=== PATIENT | male | born 1935 | race Caucasian/White ===

== ENCOUNTER 2016-07-27 10:29 | Emergency (ER) | payer OTHER ==
--- NOTE | 2016-07-27 12:19 | Diag Imaging Result Document ---
PROCEDURE NAME: HEAD/C-SPINE W/O CONTRAST - 07/27/2016 CT HEAD WITHOUT CONTRAST: A dose-reduction protocol was used. COMPARISON: Compared with 06/30/2014. FINDINGS: There are atrophic changes similar to the previous exam. There is no infarct identified, although acute infarcts may not be immediately visible. There is no evidence of intracranial hemorrhage, mass effect, or midline shift. There is no skull fracture. IMPRESSION: No visible acute intracranial process. No evidence of intracranial injury. CT CERVICAL SPINE WITHOUT CONTRAST: A dose-reduction protocol was used. Axial and reformatted sagittal and coronal images are obtained. COMPARISON: No comparison exam. FINDINGS: There are degenerative changes at the atlantoaxial articulation. There are calcifications at the transverse ligament. There is multilevel degenerative disk and degenerative facet disease. There is a focal central disk protrusion at C4-5. There are posterior osteophytes and ligamentum flavum calcifications at C4-5 which produce mild spinal stenosis. There is apparent mild spinal stenosis at C5-6. There is multilevel degenerative neural foraminal narrowing. The C2-3 facet appears to be fused. There is no fracture identified. There is no subluxation seen. There is no precervical soft tissue swelling identified. There are atherosclerotic calcifications noted at the bilateral carotid bulb regions. IMPRESSION: 1. Substantial multilevel degenerative disease. Associated mild spinal stenosis at C4-5 and C5-6. Focal central disk protrusion at C3-4. 2. No evidence of fracture or subluxation. [facility]
[2016-07-27] MEDS ORDERED: NORCO-5 PO ONE (13:57)
--- NOTE | 2016-07-27 13:58 | PROVIDER DOCUMENTATION ---
HPI-Musculoskeletal Pain/Inj - GENERAL Chief Complaint: Fall Stated Complaint: LOWER BACK PAIN Time Seen by Provider: 07/27/16 11:12 Source: patient, family - HX OF PRESENT ILLNESS-MUSKULOSKELTAL Nature of Presenting Problem: REPORTS FALLING OUT OF BED WHILE DREAMING ABOUT 3 NIGHTS AGO. C/O "I HIT MY HEAD AND MY LOWER BACK HURTS BUT I HAVE DEGENERATIVE DISC DISEASE." Quality of Pain: reports: aching Severity in ED: mild Onset/Duration: 3 days ago Timing: still present Modifying Factors: improves with: nothing Any recent injury?: Yes (FELL FROM BED 3 NIGHTS AGO) Locality of Occurance: Home Similar Symptoms Previously?: Yes (DJD) Recently seen or treated by another doctor?: No - FALL INJURY Location of Pain/Injury: reports: neck, back Pain Radiation: reports: no radiation Reason for Fall: reports: other ("I WAS DREAMING AND I JUST FELL OUT OF BED. ") Symptoms prior to fall:: reports: none Loss of Consciousness: no loss of consciousness - BACK & NECK PAIN/INJURY Back/Neck Pain Location: reports: C-spine, lumbar spine Associated Symptoms: reports: denies symptoms History of Chronic Neck or Back Pain?: Yes (DJD) - LOWER EXTREMITY PAIN/INJURY Context / Method of Injury: reports: fell - UPPER EXTREMITY PAIN/INJURY Associated Symptoms: reports: denies symptoms Review of Systems - Adult - REVIEW OF SYSTEMS - ADULT Constitutional: reports: no symptoms reported Eyes: reports: no symptoms reported Ears, Nose, Mouth & Throat: reports: no symptoms reported Cardiovascular: reports: no symptoms reported Respiratory: reports: no symptoms reported Gastrointestinal: reports: no symptoms reported Genitourinary: reports: no symptoms reported Musculoskeletal: reports: see HPI Integumentary: reports: no symptoms reported Neurological: reports: no symptoms reported Psychiatric: reports: no symptoms reported Endocrine: reports: no symptoms reported Allergic/Immunologic: reports: no symptoms reported All Other Systems: Reviewed and Negative Past History - Adult - PAST MEDICAL HISTORY-ADULT Review of Records: reports: Nursing Assessment Review, Medications Reviewed, Social history reviewed & non-contributory. Major Childhood Illnesses: reports: denies history Cardiovascular: reports: arrhythmia, HTN, heart valve problem (MVP), hyperlipidemia, palpitations Respiratory: reports: lung disease (left lower lobectomy) Gastrointestinal: reports: Crohn's, GERD Genitourinary: reports: prostate cancer, other (interstitial cystitis) Musculoskeletal: reports: other (DJD) Neurological: reports: denies history Psychiatric: reports: denies history Endocrine/Immune: reports: denies history Other Conditions: reports: denies history - PRIOR SURGERIES/PROCEDURES Surgical/Procedure History: reports: appendectomy, cholecystectomy, other ( prostate, LL lobectomy) - SOCIAL HISTORY Smoking: denies Substance Use: none/never Alcohol Use Frequency: never Living Situation: alone Physical Exam-Injury Related - Physical Exam-Injury Related General Appearance: appears well Immobilization?: negative: backboard, C-collar, applied in ED, applied KNOCKOUT MAN Eyes: PERRL/EOMI, pink conjunctivae Head, Ears, Nose, Mouth & Throat: normocephalic/atraumatic, moist mucous membranes Neck: tender lateral (BILATERALLY) Respiratory: chest non-tender, lungs clear, normal breath sounds Cardiovascular: normal peripheral pulses, regular rate, rhythm Abdominal Exam: normal bowel sounds Male Genitalia: deferred Lymphatic: no adenopathy Back Exam: other (LUMBAR SPINE TENDER LATERALLY BILATERALLY) Extremity: normal range of motion Integumentary: normal color, warm/dry Neurologic: grossly normal - Glascow Coma Score Best Eye Response (Bob White): (4) open spontaneously Best Verbal Response (Marina): (5) oriented Best Motor Response (Bob White): (6) obeys commands Progress - PLAN OF CARE/RESULTS Progress/Plan/Lab Results: Vital Signs Temp Pulse Resp BP Pulse Ox 07/27/16 10:47 97.3 F L 86 20 143/75 100 Penicillins Allergy (Intermediate, Verified 07/27/16 11:22) RASH amlodipine besylate * [From Norvasc] Adverse Reaction (Intermediate, Verified 11:22) palpitations butabarbital [From Pyridium Plus] Adverse Reaction (Verified 07/27/16 11:22) "stops urine flow" hyoscyamine [From Pyridium Plus] Adverse Reaction (Verified 07/27/16 11:22) "stops urine flow" phenazopyridine HCl * [From Pyridium Plus] Adverse Reaction (Verified 07/27/16 11:22) "stops urine flow" SIMVAstatin [Zocor] 10 mg PO QHS 07/10/12 Verapamil [Isoptin] 240 mg PO DAILY 07/10/12 Alprazolam 0.25 mg PO BID PRN PRN 01/28/14 Ascorbic Acid [Vitamin C] 500 mg PO DAILY 01/28/14 Calcium Magnesium Zinc 1 tab PO DAILY 01/28/14 Cholecalciferol (Vitamin D3) [Vitamin D3] 2,000 unit PO DAILY 01/28/14 Folic Acid 0.4 mg PO DAILY 01/28/14 Glipizide [Glipizide Xl] 2.5 mg PO DAILY 01/28/14 Gluc Shepherd/Chondro Shepherd A/Vit C/Mn [Glucosamine Chondroitin Tab] 1 each PO DAILY Stella-3 Fatty Acids/Fish Oil [Fish Oil 1,000 mg Softgel] 1 each PO DAILY Potassium Chloride [Klor-Con M20] 10 meq PO DIRECTED 01/28/14 Ubidecarenone [Co Q-10] 200 mg PO DAILY 01/28/14 Aspirin [Aspirin EC] 81 mg PO DAILY 06/30/14 Orders Category Date Time Status HEAD/C-SPINE W/O CONTRAST [CT] Stat Exams 07/27/16 11:03 Completed LUMBAR SPINE [RAD] Stat Exams 07/27/16 13:55 Ordered Hydrocodone/APAP 5 mg/325 mg [[place]-5] Med 07/27/16 13:57 Discontinued 1 each PO NOW ONE CT HEAD AND C-SPINE NO FRACTURE L-SPINE WNL - XRAY 2 XRAY: Bilateral XRAY Study: Lumbar Spine (WNL) Impression: Normal - CT/MRI 1 CT Study: Head CT Results: WNO Departure - Departure Time of Disposition Order: 15:15 DIAGNOSIS: Low back pain Qualifiers: Chronicity: acute Back pain laterality: bilateral Sciatica presence: without sciatica Qualified Code(s): M54.5 - Low back pain Head pain cephalgia Qualifiers: Headache type: post-traumatic Headache chronicity pattern: unspecified pattern Intractability: not intractable Qualified Code(s): G44.309 - Post-traumatic headache, unspecified, not intractable Fall Qualifiers: Encounter type: initial encounter Qualified Code(s): W19.XXXA - Unspecified fall, initial encounter Disposition: HOME 01 Certified Medical Emergency: Emergent Condition: Stable Additional Instructions: BE VERY CAREFUL TAKING HYDROCODONE IT IS A NARCOTIC. O.K. TO CONTINUE YOUR HOME MEDICATIONS AND ALEVE. USE ICE TO YOUR BACK. RETURN TO ER FOR ANY WORSENING SYMPTOMS. ED Follow Up Instructions: You have been treated by a care provider in the Emergency Department. These instructions are being provided to you so you can have an understanding of how to care for yourself upon discharge. Upon discharge from the Emergency Department, you are responsible for making arrangements for follow-up care by a physician of your choice. Take all prescribed medications as directed. Return to the Emergency Department immediately for any new or worsening symptoms. You may call the Physician Referral phone number at [phone] to obtain a list of Physicians who are taking new patients. Prescriptions: Hydrocodone/Acetaminophen [[place] 5-325 Tablet] 1 each PO Q6-8H PRN PRN #7 tablet PRN Reason: Pain Referrals: Brunilda Ferris MD [Primary Care Provider] - Instructions: Migraine Headache, [id number]
[2016-07-27 15:01] VITALS: BP 121/57
--- NOTE | 2016-07-27 15:03 | Diag Imaging Result Document ---
PROCEDURE NAME: LUMBAR SPINE - 07/27/2016 LUMBAR SPINE AP AND LATERAL WITH OBLIQUES, SIX VIEWS: FINDINGS: There is good alignment to the lumbar spine. No compressed vertebra. No subluxation. There is disk space narrowing with vacuum disks at L4-5 and L5-S1. Degenerative bone spurring is found throughout the lumbar spine. IMPRESSION: 1. Moderate degenerative changes. 2. No fracture.
== END 2016-07-27 15:35 | disposition home or self-care (01) ==
LOC: ED 10:29
DX: G44.309 Post-traumatic headache, unspecified, not intractable (principal); M54.5 Low back pain; R51 Headache; W06.XXXA Fall from bed, initial encounter; I10 Essential (primary) hypertension; I34.1 Nonrheumatic mitral (valve) prolapse; E78.5 Hyperlipidemia, unspecified; K50.90 Crohn's disease, unspecified, without complications; Z79.899 Other long term (current) drug therapy; Z85.46 Personal history of malignant neoplasm of prostate; N30.10 Interstitial cystitis (chronic) without hematuria; Z90.2 Acquired absence of lung [part of]; Z79.82 Long term (current) use of aspirin
CPT/HCPCS: 70450; 72110; 72125

== ENCOUNTER 2018-07-04 10:57 | Inpatient (IN) ==
[2018-07-04] MEDS ORDERED: ASPIRIN PO ONE ×2 (11:15→11:30)
[2018-07-04] MEDS ORDERED: NITROGLYCERIN SL ONE ×2 (11:16→11:30)
--- NOTE | 2018-07-04 11:51 | EKG Report ---
Test Performed on : 07/04/2018 11:02:08 AM Test Reason : CP Blood Pressure : / mmHG Vent. Rate : 098 BPM Atrial Rate : 098 BPM P-R Int : 120 ms QRS Dur : 086 ms QT Int : 354 ms P-R-T Axes : 000 -50 035 degrees QTc Int : 451 ms Normal sinus rhythm. Left anterior fascicular block Abnormal ECG When compared with ECG of 10-NOV-2017 22:04, Vent. rate has increased BY 41 BPM Unconfirmed Result
[2018-07-04 11:53] LABS: BASO# 0.01 X1000 (0.0-0.2); BASO% 0.2 % (0.0-0.8); EOS# 0.08 X1000 (0.0-0.7); EOS% 1.3 % (0.0-10.0); HEMATOCRIT 34.8 % (42.0-52.0); HEMOGLOBIN 11.6 g/dL (14.0-18.0); LYMPH# 0.98 X1000 (1.2-3.4); LYMPH% 15.8 % (20.5-51.1); MCH 30.5 PG (27-31); MCHC 33.3 g/dL (33-37); MCV 91.6 FL (81-99); MONO# 0.83 X1000 (0.11-0.59); MONO% 13.3 % (1.7-9.3); MPV 11.4 FL (7.4-10.4); NEUT# 4.32 X1000 (1.4-6.5); NEUT% 69.4 % (42.2-75.2); PLT 149 X1000 (130-400); RDW 12.9 % (11.5-14.5); WBC 6.22 X1000 (4.8-10.8)
--- NOTE | 2018-07-04 11:54 | Diag Imaging Result Doc PS360 ---
EXAM: CHEST-PORTABLE 07/04/2018 HISTORY: CP TECHNIQUE: AP upright chest portable at 1147 COMMENT: The inspiration is less optimal than on 06/30/2014. There may be some mild atelectasis at the left base. Otherwise the appearance of the chest has not changed significantly. IMPRESSION: Questionable left lower lobe atelectasis. Electronically signed by Tate Paulino 07/04/2018 11:52 AM
[2018-07-04] MEDS ORDERED: MORPHINE IV ONE (11:57)
[2018-07-04] MEDS ORDERED: ZOFRAN IV ONE (11:57)
[2018-07-04 12:11] LABS: CALCIUM 9.3 mg/dL (8.8-10.2); CREATININE 1.5 mg/dL (0.7-1.2); MAGNESIUM 1.6 mg/dL (1.5-2.7); POTASSIUM 4.1 mmol/L (3.5-5.1)
[2018-07-04 12:15] LABS: INR 1.03; PROTIME 14.3 Seconds (11.0-16.0); PTT 27.7 Seconds (22.3-41.8)
[2018-07-04 12:49] LABS: URINE SOURCE CLEAN CATCH
[2018-07-04 12:51] LABS: BILIRUBIN URINE NEGATIVE (NEGATIVE); BLOOD URINE NEGATIVE (NEGATIVE); COLOR YELLOW; GLUCOSE URINE NEGATIVE (NEGATIVE); KETONE URINE NEGATIVE (NEGATIVE); LEUKOCYTES URINE NEGATIVE (NEGATIVE); NITRITE URINE NEGATIVE (NEGATIVE); PROTEIN URINE TRACE mg/dL (NEGATIVE); SP GRAVITY URINE 1.012; TURBIDITY URINE CLEAR (CLEAR); UR EPITHELIAL CELLS <10 /HPF (<10); URINE BACTERIA NEGATIVE /HPF; URINE RBC <10 /HPF (<10); URINE WBC <10 /HPF (<10); UROBILINOGEN URINE NORMAL (NORMAL)
[2018-07-04] MEDS ORDERED: HEPARIN IV ONE (14:12)
[2018-07-04] MEDS ORDERED: HEPARIN 25,000 UNITS/D5W 25,000 UNIT/250 ML IV.SOLN IV SCH (14:15)
[2018-07-04] MEDS ORDERED: ZOFRAN IV PRN (14:15)
[2018-07-04 14:23] LABS: IRON SATURATION 13 %; TIBC 217 ug/dL; TOTAL IRON 28 ug/dL (53-167); UNBOUND IRON 189 ug/dL (112-346)
[2018-07-04 14:42] LABS: FERRITIN 154 ng/mL (30-400)
[2018-07-04 15:01] LABS: C REACTIVE PROT QUANT 5.63 mg/L (0.00-5.00)
--- NOTE | 2018-07-04 15:24 | Diag Imaging Result Doc PS360 ---
LUNG SCAN / VQ - 07/04/2018 INDICATION: chest pain and elevated ddimer TECHNIQUE: 39.6 mCi of DTPA was used for inhalation. 6.2 mCi of MAA was used for injection. COMPARISON: Chest x-ray from earlier today FINDINGS: There is normal localization pattern of the radiotracers. No evidence of pulmonary perfusion defect. IMPRESSION: Negative for pulmonary embolism. Electronically signed by Rashaun Rodriguez 07/04/2018 3:22 PM
[2018-07-04] MEDS: NS 1,000 ML IV SCH (16:54)
[2018-07-04] MEDS ORDERED: LOVENOX SUBQ ONE (17:07)
[2018-07-04] MEDS: HUMULIN R SUBQ SCH ×2 (17:11→21:50)
--- NOTE | 2018-07-04 18:13 | HISTORY AND PHYSICAL ---
PRIMARY CARE PROVIDER: No one, he goes to a clinic. CHIEF COMPLAINT: Chest pain. HISTORY OF PRESENT ILLNESS: Mr. Ruddy Briscoe is an 83-year-old male with no medical history of heart disease. He does have a medical history of diabetes, hypertension, and mitral valve prolapse. He states that around 8:00 p.m. last night he started having some mid sternal chest pain into the back and down the back of both arms. He took a 325 mg aspirin and went to bed. He was able to sleep. He woke up around 8:30 this morning and was still having some mid sternal chest pain that continued to radiate to the back and down both arms. He was significantly short of breath with this and had some dizziness. Vital signs were stable upon admission. His first set of cardiac enzymes were negative. EKG did not show any ST elevations but it did take nitroglycerin and morphine to relieve his pain. One of the labs that came back elevated was a D-dimer at 1.28 but he also has an elevated BUN and creatinine so he will be sent for a VQ scan of the lungs to rule out PE. We will admit to [facility] as he will be started on heparin drip. PAST MEDICAL HISTORY: 1. Diabetes mellitus type 2. 2. Hypertension. 3. Prostate cancer, status post prostatectomy. 4. Crohn's disease. 5. Mitral valve prolapse. 6. GERD. 7. Interstitial cystitis. SURGICAL HISTORY: 1. Appendectomy. 2. Cholecystectomy. 3. 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 4. Prostatectomy. SOCIAL HISTORY: Denies tobacco, alcohol, or illicit drug use. His lives with his older daughter due to advancing Alzheimer's, which I believe they live right next door to his house. FAMILY HISTORY: None. ALLERGIES: Hyoscyamine, Pyridium, penicillin, and Norvasc. HOME MEDICATIONS: 1. Zocor 10 mg p.o. nightly. 2. Vitamin C 500 mg p.o. daily. 3. Aspirin, enteric coated, 81 mg p.o. daily. 4. Calcium, magnesium, and zinc 1 tab p.o. daily. 5. Vitamin D3 2,000 units p.o. daily. 6. Nexium 40 mg p.o. daily. 7. Folic acid 0.4 mg p.o. daily. 8. Glucosamine chondroitin 1 tab p.o. daily. 9. Fish oil once daily. 10.Potassium chloride 10 mEq as directed. 11.CoQ10 400 mg p.o. daily. 12.Verapamil 240 mg p.o. daily. REVIEW OF SYSTEMS: A 14 point review of systems was completed and negative except for those mentioned above in the HPI. To add to that, he states that he has not really been eating well but no nausea and the dizziness that he has is pretty common for him. PHYSICAL EXAMINATION: VITAL SIGNS: Temperature is 97.6, heart rate 100, respiratory rate 20, blood pressure 152/72, O2 saturation 100% on room air, 6 foot zero inches tall and 160 pounds. BMI is 21.7. GENERAL: Mr. Ruddy Briscoe is an 83-year-old male. He is in no acute distress. He is able to answer questions appropriately. HEENT: Atraumatic, normocephalic. Pupils are equal, round, and reactive to light. Extraocular movements are intact. Mucous membranes are dry. NECK: Trachea is midline. CARDIOVASCULAR: S1 and S2. Regular rate and rhythm. No rubs, gallops, or murmurs. No lower extremity edema; +2 dorsalis and radial pulses. Negative JVD or carotid bruits. PULMONARY: Clear to auscultate bilateral breath sounds. No accessory muscle use or work of breathing noted. GI: Soft, nontender, and nondistended. Positive bowel sounds times 4. EXTREMITIES: Moves all extremities equally with full range of motion. NEURO: Alert and oriented times 3. Follows commands. Sensory is intact. SKIN: Warm, dry, and intact. LABORATORY DATA: White blood cells 6,000, hemoglobin 11, hematocrit 34, and platelet count 149. INR is 1.03. PTT is 27.7. D-dimer is 1.28. Sodium is 140, potassium 4.1, BUN 27, creatinine 1.5, glucose 13, calcium 9.3, and magnesium 1.6. CK is 130. Troponin less than 0.01. Urinalysis: Trace protein. IMAGING: Chest x-ray: Questionable left lower lobe atelectasis. EKG: Normal sinus rhythm, rate 98. QTc 451. There are no ST elevations or ST depressions and no Q waves. ASSESSMENT AND PLAN: 1. Chest pain that radiated down both arms and into the back with associated shortness of breath and dizziness, relieved after receiving morphine and nitroglycerin. First set of cardiac enzymes are negative. EKG without any ST changes. D-dimer is elevated. We will send for a VQ scan to rule out pulmonary embolus. He does have an elevated creatinine. We will repeat EKG in the morning and check an echocardiogram. The patient was started on a heparin drip in the Emergency Room without official pulmonary embolus diagnosis. We will transfer to the [facility]. We will also get a type and screen. 2. Diabetes mellitus type 2. We will do pattern blood glucoses and sliding scale insulin. 3. Hypertension. Continue home medications and verapamil. 4. Mitral valve prolapse. Continue verapamil. 5. Iron deficiency anemia. We will check levels. 6. Deep vein thrombosis prophylaxis. He is on a heparin drip. Dictated by JADYN Lu for Pavel Gutierrez MD cc: JADYN Lu MD Patient seen and evaluated by me. Presenting with chest pain. Had a VQ scan which is not indicative of PE. Cardiology consulted. Dr. Gutierrez. [facility]
[2018-07-04] MEDS: TYLENOL PO PRN (18:29)
--- NOTE | 2018-07-04 18:36 | CARDIOLOGY CONSULTATION ---
DATE: 07/04/2018 CHIEF COMPLAINT ON PRESENTATION: Chest pain. HISTORY OF PRESENT ILLNESS: Mr. Briscoe is an 83-year-old white male with a history of diabetes, hypertension, and hyperlipidemia, who presented for complaints of chest pain that began last night. It felt like a pressure. It began while he was in a resting position. There was no exertional component, located in the mid chest, and he had no other symptoms associated. These pains have persisted for greater than 12 hours and actually were present upon waking this morning. He has had nuclear scans performed that did not suggest any obvious ischemia and was a relatively low risk study. The patient is a somewhat difficult historian during the course of this study. PAST MEDICAL HISTORY: Significant for: 1. Chest pain, evaluated with nuclear scans that was a low risk study in 2012. 2. Diastolic heart failure. 3. Hypertension. 4. Hyperlipidemia. 5. Diabetes. 6. Hypothyroidism. 7. Chronic kidney disease. 8. Crohn disease. 9. Prostate cancer. SOCIAL HISTORY: Apparently lives alone in [place]. He has family who live next door. He does not smoke. FAMILY HISTORY: Significant for hypertension. REVIEW OF SYSTEMS: A 10 system review of systems is negative, except for those as mentioned in the HPI. PHYSICAL EXAMINATION: Vital signs: The patient had a temperature of 100.2 degrees. His heart rate is anywhere from the 80s to low 100s. Blood pressure 152/72. General: He is in no acute distress. HEENT: Oropharynx is moist. Poor dentition. Eye examination shows pink conjunctivae and white sclerae. Neck: Examination shows no obvious thyromegaly or thyroid tenderness. Cardiovascular: He sounds to be in a regular rate and rhythm. He has no obvious murmurs. He has no S3. He has no lower extremity edema. Chest: Exam sounds clear bilaterally. He has no increased work of breathing. Abdomen: Soft, nontender, nondistended. No obvious organomegaly. Skin: Warm and dry throughout without any rashes. Neurological: He is moving all extremities well. He has no lateralizing deficits. PERTINENT DATA: The patient had a chest x-ray suggesting a left lower lobe atelectasis but really no change in the study compared to June 2014. A V/Q scan was negative. He had an EKG reviewed by me that demonstrated INCOMPLETE REPORT -- DICTATION ENDS HERE. cc: Manuel Hernandez MD
[2018-07-04] MEDS ORDERED: ZOCOR PO SCH (21:00)
[2018-07-04] MEDS ORDERED: NITROGLYCERIN SL PRN (21:29)
--- NOTE | 2018-07-04 22:01 | ECHO REPORT ---
ORDER DATE: 07/04/2018 MEASUREMENTS: Left ventricular end-diastolic diameter 4.4, end-systolic diameter 2.3, septal thickness 1.0. Posterior wall thickness 1.0, aortic root 3.8, left atrium 4.3. SUMMARY: 1. Technically difficult study due to limited acoustic window quality. 2. Aortic valve is trileaflet and opens adequately on 2-dimensional images. Peak gradient across the aortic valve is less than 10 mmHg. 3. Mitral valve is without evidence of structural abnormality. Specifically, there is no evidence of mitral valve prolapse. 4. Tricuspid valve is without evidence of structural abnormality, while pulmonic valve is not well demonstrated. There is mild tricuspid regurgitation. The estimated systolic PA pressure by Doppler is 30 mmHg. 5. The aortic root is borderline enlarged. The proximal ascending aorta is mildly to moderately enlarged. 6. Normal left ventricular dimensions demonstrated. Estimated left ventricular ejection fraction appears to be at least 60%. No regional wall motion abnormalities evident. Doppler suggests grade 1 left ventricular diastolic function. 7. The left atrium is mildly enlarged. 8. The right atrium and right ventricle are normal size with grossly preserved right ventricular systolic function. 9. No pericardial effusion. 10. Appearance of inferior vena cava suggests normal central venous pressure. cc: MD Sofy Renee CRNP
[2018-07-04] MEDS: PRILOSEC PO SCH (22:34)
[2018-07-04] MEDS: MORPHINE IV PRN (23:12)
[2018-07-05 05:44] LABS: BASO# 0.02 X1000 (0.0-0.2); BASO% 0.3 % (0.0-0.8); EOS# 0.03 X1000 (0.0-0.7); EOS% 0.4 % (0.0-10.0); HEMATOCRIT 32.3 % (42.0-52.0); HEMOGLOBIN 10.9 g/dL (14.0-18.0); LYMPH# 0.79 X1000 (1.2-3.4); LYMPH% 10.2 % (20.5-51.1); MCH 31.1 PG (27-31); MCHC 33.7 g/dL (33-37); MONO# 1.34 X1000 (0.11-0.59); MONO% 17.3 % (1.7-9.3); MPV 11.5 FL (7.4-10.4); NEUT# 5.55 X1000 (1.4-6.5); NEUT% 71.8 % (42.2-75.2); PLT 124 X1000 (130-400); RBC 3.51 XMIL (4.7-6.1); RDW 12.6 % (11.5-14.5); WBC 7.73 X1000 (4.8-10.8)
[2018-07-05 06:11] LABS: HEMOGLOBIN A1C 5.2 % (4.8-6.0)
[2018-07-05 06:13] LABS: MAGNESIUM 1.5 mg/dL (1.5-2.7)
[2018-07-05] MEDS: HUMULIN R SUBQ SCH ×3 (06:34→18:04)
--- NOTE | 2018-07-05 06:46 | EKG Report ---
Test Performed on : 07/04/2018 9:16:04 PM Test Reason : chest pain Blood Pressure : / mmHG Vent. Rate : 082 BPM Atrial Rate : 082 BPM P-R Int : 144 ms QRS Dur : 100 ms QT Int : 392 ms P-R-T Axes : 057 -51 009 degrees QTc Int : 457 ms Normal sinus rhythm. Left axis deviation Septal infarct , age undetermined Abnormal ECG When compared with ECG of 04-JUL-2018 11:02, (Unconfirmed) No significant change was found Confirmed by Bree SANFORD, Gunner Lockett ([id number]) on 07/05/2018 7:57:43 AM
--- NOTE | 2018-07-05 07:25 | EKG Report ---
Test Performed on : 07/05/2018 06:43:04 AM Test Reason : chest pain Blood Pressure : / mmHG Vent. Rate : 081 BPM Atrial Rate : 081 BPM P-R Int : 152 ms QRS Dur : 094 ms QT Int : 356 ms P-R-T Axes : 051 -46 014 degrees QTc Int : 413 ms Normal sinus rhythm. Left anterior fascicular block Septal infarct (cited on or before 04-JUL-2018) Abnormal ECG When compared with ECG of 04-JUL-2018 21:16, (Unconfirmed) No significant change was found Unconfirmed Result
[2018-07-05] MEDS: MORPHINE IV PRN (07:48)
[2018-07-05] MEDS: PRILOSEC PO SCH (08:56)
[2018-07-05] MEDS ORDERED: GLUCOSAMINE 500 MG/CHONDROITIN 400 MG PO SCH (09:00)
[2018-07-05] MEDS ORDERED: VITAMIN C PO SCH (09:00)
[2018-07-05] MEDS ORDERED: COENZYME Q10 PO SCH (09:00)
[2018-07-05] MEDS ORDERED: ISOPTIN SR PO SCH (09:00)
[2018-07-05] MEDS ORDERED: VITAMIN D PO SCH (09:00)
[2018-07-05] MEDS ORDERED: FOLIC ACID PO SCH (09:00)
[2018-07-05] MEDS ORDERED: THERA M PLUS PO SCH (09:00)
[2018-07-05] MEDS ORDERED: ASPIRIN EC PO SCH (09:00)
[2018-07-05] MEDS ORDERED: FISH OIL CONCENTRATE PO SCH (09:00)
[2018-07-05] MEDS: TYLENOL PO PRN ×2 (10:39→16:49)
[2018-07-05] MEDS: NS 1,000 ML IV SCH (10:40)
--- NOTE | 2018-07-05 12:07 | PROGRESS NOTE ---
DATE: 07/05/2018 SUBJECTIVE: The patient is resting comfortable in bed. OBJECTIVE: Vital signs: Temperature 98.8 degrees, pulse 81, respiratory rate 18, blood pressure 126/62, and oxygen saturation is 96%. HEENT: Head is atraumatic, normocephalic. Cardiovascular: S1, S2. Respiratory System: Has evidence of good air entry bilaterally. Abdomen: Soft, nontender. No masses felt. Extremities: No evidence of edema. Central nervous system: No obvious focal deficit noted. LABORATORY: WBC is 7.73, hematocrit 32.3, with a platelet count of 124,000. ASSESSMENT AND PLAN: 1. Atypical chest pain. The patient had been followed by the cardiology team. Further cardiac workup will be per recommendation of the Cardiology Team. 2. Crohn's disease. We will get GI to see patient while in the hospital. 3. Diabetes mellitus type 2. Continue blood sugar monitoring as well as sliding scale insulin. 4. Hypertension. Continue current antihypertensive regimen. 5. History of mitral valve prolapse. Aware. 6. Iron deficiency anemia. Continue iron supplementation. Of note, the patient also has a low B12 level. We will also need to be on B12 supplementation as well. 7. Deep vein thrombosis prophylaxis. We will maintain patient on Lovenox 40 subcutaneous once a day. cc: Pavel Gutierrez MD
--- NOTE | 2018-07-05 12:39 | PROVIDER DOCUMENTATION ---
This chart was entered by Donna Bennett Scribe, acting as scribe for Clement Carpio MD. HPI-Chest Pain - General Chief Complaint: Chest Pain Stated Complaint: CP Time Seen by Provider: 07/04/18 11:27 Source: patient Allergies/Adverse Reactions: Patient Allergies Allergy/AdvReac Type Severity Reaction Status Date / Time Penicillins Allergy Intermediate RASH Verified 07/04/18 11:51 amlodipine besylate * AdvReac Intermediate palpitation Verified 07/04/18 11:51 [From Norvasc] s butabarbital AdvReac "stops Verified 07/04/18 11:51 [From Pyridium Plus] urine flow" hyoscyamine AdvReac "stops Verified 07/04/18 11:51 [From Pyridium Plus] urine flow" phenazopyridine HCl * AdvReac "stops Verified 07/04/18 11:51 [From Pyridium Plus] urine flow" Home Medications: Home Medication List Medication Instructions Recorded Confirmed Last Taken Type SIMVAstatin [Zocor] 10 mg PO QHS 07/10/12 07/04/18 07/03/18 History Verapamil [Isoptin] 240 mg PO DAILY 07/10/12 07/04/18 07/27/16 08:00 History Ascorbic Acid [Vitamin C] 500 mg PO DAILY 01/28/14 07/04/18 07/27/16 08:00 History Calcium Magnesium Zinc 1 tab PO DAILY 01/28/14 07/04/18 07/27/16 08:00 History Cholecalciferol (Vitamin D3) 2,000 unit PO DAILY 01/28/14 07/04/18 07/27/16 08: 00 History [Vitamin D3] Folic Acid 0.4 mg PO DAILY 01/28/14 07/04/18 07/27/16 08:00 History Gluc Shepherd/Chondro Shepherd A/Vit C/Mn 1 each PO DAILY 01/28/14 07/04/18 07/27/16 08:00 History [Glucosamine Chondroitin Tab] [place]-3 Fatty Acids/Fish Oil [Fish 1 each PO DAILY 01/28/14 07/04/18 07/27/16 08 :00 History Oil 1,000 mg Softgel] Potassium Chloride [Klor-Con M20] 10 meq PO DIRECTED 01/28/14 07/04/18 08:00 History Ubidecarenone [Co Q-10] 400 mg PO DAILY 01/28/14 07/04/18 07/27/16 08:00 History Aspirin [Aspirin EC] 81 mg PO DAILY 06/30/14 07/04/18 07/27/16 08:00 History Esomeprazole [Nexium] 40 mg PO DAILY 07/04/18 07/04/18 Unknown History Metronidazole 07/04/18 07/04/18 Unknown History - History of Present Illness-CP Nature of Presenting Problem: 83 yowm presents to the ed with c/o chest pain onset last night and still present today. pt sts it is getting worse Location: reports: substernal Chest Pain Radiation: reports: no radiation Quality of Pain: reports: aching, pressure Severity in ED: moderate Onset/Duration: last night Timing: still present Context/Activities at Onset: reports: light activity Modifying Factors: improves with: nothing Associated Symptoms: reports: shortness of breath. denies: abdominal pain, back pain, dizziness, fatigue, nausea, vomiting Nitro Today/Relief: 0.4 mg x 1, provided by ED, mild relief Aspirin Treatment Today: 325 mg x 1, provided by ED Similar Symptoms Previously?: Yes Recently Seen Here or By Another Healthcare Provider: No Review of Systems - Adult - REVIEW OF SYSTEMS - ADULT Constitutional: denies: chills, fever Eyes: reports: no symptoms reported Ears, Nose, Mouth & Throat: reports: no symptoms reported Cardiovascular: reports: see HPI, chest pain. denies: palpitations, syncope Respiratory: reports: shortness of breath. denies: cough, wheezing Gastrointestinal: denies: abdominal pain, diarrhea, nausea, vomiting Genitourinary: reports: no symptoms reported Musculoskeletal: denies: back pain, neck pain Integumentary: reports: no symptoms reported Neurological: denies: dizziness/vertigo, headache/migraines Psychiatric: reports: no symptoms reported Endocrine: reports: no symptoms reported Hematologic/Lymphatic: reports: no symptoms reported Allergic/Immunologic: reports: no symptoms reported All Other Systems: Reviewed and Negative Past History - Adult - PAST MEDICAL HISTORY-ADULT Review of Records: reports: Old Records Reviewed, Nursing Assessment Review, Medications Reviewed, Social history reviewed & non-contributory. Major Childhood Illnesses: reports: denies history Cardiovascular: reports: arrhythmia, HTN, heart valve problem (MVP), hyperlipidemia, palpitations Respiratory: reports: lung disease (left lower lobectomy) Gastrointestinal: reports: Crohn's, GERD Genitourinary: reports: prostate cancer, other (interstitial cystitis) Musculoskeletal: reports: other (DJD) Neurological: reports: denies history Psychiatric: reports: denies history Endocrine/Immune: reports: denies history Other Conditions: reports: denies history - PRIOR SURGERIES/PROCEDURES Surgical/Procedure History: reports: appendectomy, cholecystectomy, other ( prostate, LL lobectomy) - IMMUNIZATION STATUS Childhood Immunizations: See Nurse Assessment Flu Vaccine: See Nurse Assessment - FAMILY HISTORY Family History: reviewed, not pertinent - SOCIAL HISTORY Smoking: denies Substance Use: denies Living Situation: family Physical Exam-General - PHYSICAL EXAM-ADULT Initial Vital Signs Reviewed: Yes - CONSTITUTIONAL General Appearance: appears well, alert, mild distress, thin - EYES Eyes: PERRL/EOMI, pink conjunctivae - HEAD, EARS, NOSE, MOUTH & THROAT HENMT: moist mucous membranes, normal ENT inspection - NECK Neck: non-tender, full range of motion, supple, normal inspection - RESPIRATORY Respiratory: chest non-tender, lungs clear, normal breath sounds - CARDIOVASCULAR Cardiovascular: normal peripheral pulses, regular rate, rhythm - GASTROINTESTINAL (ABDOMEN) Abdominal Exam: normal bowel sounds, non tender, soft - LYMPHATIC Lymphatic: no adenopathy - MUSCULOSKELETAL Back Exam: normal inspection, no CVA tenderness, no vertebral tenderness Extremity: normal range of motion, non-tender, normal gait, normal inspection - SKIN Integumentary: normal color, normal turgor, warm/dry - NEUROLOGIC Neurologic: grossly normal, no motor/sensory deficits - PSYCHIATRIC Psych/Mental Status: normal mood/affect, normal thought content, normal thought process, oriented x 3 - HEART Score HEART Score: History: Highly Suspicious HEART Score: ECG: Non-Specific Repolarization Disturbance/LBBB/PM HEART Score: Age: > or = 65 Years HEART Score: Risk Factors for Atherosclerotic Disease: 1 or 2 Risk Factors HEART Score: Troponin: < or = Normal Limit Total HEART Score:: 6 Progress - PLAN OF CARE/RESULTS Progress/Plan/Lab Results: Vital Signs - 8 hr 07/04/18 11:07 07/04/18 11:30 07/04/18 11:45 Temperature 97.6 F Pulse Rate 97 H 94 H 93 H Respiratory Rate 18 18 18 Blood Pressure 169/79 164/80 150/85 O2 Sat by Pulse Oximetry 100 98 98 07/04/18 12:15 07/04/18 13:00 07/04/18 13:15 Temperature Pulse Rate 88 91 H 100 H Respiratory Rate 20 Blood Pressure 155/71 153/73 152/72 O2 Sat by Pulse Oximetry 98 100 Laboratory Results - last 24 hr 07/04/18 07/04/18 07/04/18 11:35 11:35 11:35 WBC RBC Hgb Hct MCV MCH MCHC RDW Std Deviation Plt Count MPV Immature Gran % (Auto) Neut % (Auto) Lymph % (Auto) [place] % (Auto) Eos % (Auto) Baso % (Auto) Immature Gran # (Auto) Neut # (Auto) Lymph # (Auto) [place] # (Auto) Eos # (Auto) Baso # (Auto) PT INR PTT (Actin FS) D-Dimer, Quantitative 1.28 H Sodium 140 Potassium 4.1 Chloride 108 H Carbon Dioxide 22 L Anion Gap 10 BUN 27 H Creatinine 1.5 H Estimated GFR/1.73 m2 44 BUN/Creatinine Ratio 18 Glucose 132 H Calculated Osmolality 286 Calcium 9.3 Magnesium 1.6 Creatine Kinase 130 Troponin T < 0.010 Urine Source Urine Color Urine Turbidity Urine pH Ur Specific [place] Urine Protein Ur Glucose (Stick) Ur Ketones (Stick) Urine Blood Urine Nitrite Urine Bilirubin Urobilinogen Dipstick Urine Leukocytes Urine WBC (Auto) Urine RBC (Auto) U Epithel Cells (Auto) Urine Bacteria (Auto) 07/04/18 07/04/18 07/04/18 11:35 11:35 12:38 WBC 6.22 RBC 3.80 L Hgb 11.6 L Hct 34.8 L MCV 91.6 MCH 30.5 MCHC 33.3 RDW Std Deviation 12.9 Plt Count 149 MPV 11.4 H Immature Gran % (Auto) 0.0 Neut % (Auto) 69.4 Lymph % (Auto) 15.8 L [place] % (Auto) 13.3 H Eos % (Auto) 1.3 Baso % (Auto) 0.2 Immature Gran # (Auto) 0.00 Neut # (Auto) 4.32 Lymph # (Auto) 0.98 L [place] # (Auto) 0.83 H Eos # (Auto) 0.08 Baso # (Auto) 0.01 PT 14.3 INR 1.03 PTT (Actin FS) 27.7 D-Dimer, Quantitative Sodium Potassium Chloride Carbon Dioxide Anion Gap BUN Creatinine Estimated GFR/1.73 m2 BUN/Creatinine Ratio Glucose Calculated Osmolality Calcium Magnesium Creatine Kinase Troponin T Urine Source CLEAN CATCH Urine Color YELLOW Urine Turbidity CLEAR Urine pH 5.0 Ur Specific [place] 1.012 Urine Protein TRACE A Ur Glucose (Stick) NEGATIVE Ur Ketones (Stick) NEGATIVE Urine Blood NEGATIVE Urine Nitrite NEGATIVE Urine Bilirubin NEGATIVE Urobilinogen Dipstick NORMAL Urine Leukocytes NEGATIVE Urine WBC (Auto) <10 Urine RBC (Auto) <10 U Epithel Cells (Auto) <10 Urine Bacteria (Auto) NEGATIVE Orders Category Date Time Status Cardiac Monitoring DIRECTED Care 07/04/18 11:27 Active Saline Loc NOW Care 07/04/18 11:28 Active CHEST-PORTABLE [RAD] Stat Exams 07/04/18 11:30 Completed LUNG SCAN / VQ [NM] Stat Exams 07/04/18 13:14 Ordered BMP [BASIC METABOLIC PANEL] [CHEM] Stat Lab 07/04/18 11:35 Completed CBC WITH ELECTRONIC DIFF [HEME] Stat Lab 07/04/18 11:35 Completed CK PROFILE [SP CHEM] Stat Lab 07/04/18 11:35 Completed CK PROFILE [SP CHEM] Stat Lab 07/04/18 13:56 Received CRP [C REACTIVE PROT QUANT] [CHEM] Stat Lab 07/04/18 13:56 Received D-DIMER [COAG] Stat Lab 07/04/18 11:35 Completed FERRITIN Stat Lab 07/04/18 11:35 Received FOLATE Stat Lab 07/04/18 11:35 Received INFLUENZA SCREEN A/B Stat Lab 07/04/18 13:56 Received MAGNESIUM [CHEM] Stat Lab 07/04/18 11:35 Completed PRO B-NATRIURETIC PEPTIDE Stat Lab 07/04/18 13:56 Received PROTIME WITH INR [COAG] Stat Lab 07/04/18 11:35 Completed PTT [COAG] Stat Lab 07/04/18 11:35 Completed TROPONIN T Stat Lab 07/04/18 11:35 Completed TROPONIN T Stat Lab 07/04/18 13:56 Received UIBC W TOTAL IRON [CHEM] Stat Lab 07/04/18 11:35 Received URINALYSIS W/POSS RFLX CULT [URINALYSIS] Stat Lab 07/04/18 12:38 Completed VITAMIN B12 Stat Lab 07/04/18 11:35 Received Ascorbic Acid [Vitamin C] Med 07/05/18 09:00 Ordered 500 mg PO DAILY Aspirin Med 07/04/18 11:15 Discontinued 325 mg PO NOW ONE Aspirin Med 07/04/18 11:30 Discontinued 325 mg PO NOW ONE Aspirin EC Med 07/05/18 09:00 Ordered 81 mg PO DAILY Calcium Magnesium Zinc Med 07/05/18 09:00 Ordered 1 tab PO DAILY Cholecalciferol (Vitamin D3) [Vitamin D3] Med 07/05/18 09:00 Ordered 2,000 unit PO DAILY Folic Acid Med 07/05/18 09:00 Ordered 0.4 mg PO DAILY Gluc Shepherd/Chondro Shepherd A/Vit C/Mn [Glucosamine Chondroitin Med 07/05/18 09:00 Ordered Tab] 1 each PO DAILY Morphine Med 07/04/18 11:57 Discontinued 4 mg IV NOW ONE Nitroglycerin Sl [Nitroglycerin] Med 07/04/18 11:16 Discontinued 0.4 mg SL NOW ONE Nitroglycerin Sl [Nitroglycerin] Med 07/04/18 11:30 Discontinued 0.4 mg SL NOW ONE [place]-3 Fatty Acids/Fish Oil [Fish Oil 1,000 mg Softgel Med 07/05/18 09:00 Ordered ] 1 each PO DAILY Ondansetron [Zofran] Med 07/04/18 11:57 Discontinued 4 mg IV NOW ONE SIMVAstatin [Zocor] Med 07/04/18 21:00 Ordered 10 mg PO QHS Ubidecarenone [Co Q-10] Med 07/05/18 09:00 Ordered 400 mg PO DAILY Verapamil [Isoptin] Med 07/05/18 09:00 Ordered 240 mg PO DAILY EKG [EKG] Stat Ther 07/04/18 11:28 Draft Result Diagrams: 07/04/18 11:35 07/04/18 11:35 - REASSESSMENT Reassessment #1 Time Reassessed: 13:12 Status: improving Reassessment Comment: pt is resting in bed - EKG 1 Time of EKG reading by physician:: 11:02 EKG Read and Signed by:: Clement Carpio EKG Interpretation (*Must complete 3 of following elements*): Abnormal Rate: 98 Rhythm: nsr [place]: normal QRS: other (LAFB) ND Interval: normal ST Wave: normal - XRAY 1 XRAY: Bilateral XRAY Study: Chest Impression: See EMR Report (EXAM: CHEST-PORTABLE 07/04/2018 HISTORY: CP TECHNIQUE: AP upright chest portable at 1147 COMMENT: The inspiration is less optimal than on 06/30/2014. There may be some mild atelectasis at the left base. Otherwise the appearance of the chest has not changed significantly. IMPRESSION: Questionable left lower lobe atelectasis. Electronically signed by Tate Paulino 07/04/2018 11:52 AM 07/04/18 1152 Interpreting Physician: Tate Paulino MD Dictated Date/Time: 07/04/18 1151 cc: Clement Carpio MD; None,PCP) - CONSULTS/PCP/HOSPITALIST Notification #1 *Consult/PCP/Hospitalist*: hospitalist dr fletcher Time Discussed: 13:12 Consult Disposition: Admit Departure - Departure Date of Disposition Decision: 07/04/18 Time of Disposition Decision: 13:15 DIAGNOSIS: D-dimer, elevated, Renal insufficiency Chest pain Qualifiers: Chest pain type: unspecified Qualified Code(s): R07.9 - Chest pain, unspecified Disposition: ADMITTED INPATIENT 09 Certified Medical Emergency: Emergent Condition: Stable Referrals and Follow-Ups: None,PCP [Primary Care Provider] - - Critical Care Note This patient required my direct & personal management of CC.: Yes Total Time (mins): 37 Critical Care Statement: This patient required my direct personal management to treat or rule out processes, the absence of which, could potentiallly result in sudden, clinically significant life or limb threatening deterioration. Attestation - Physician/ [place] Attestation Patient care was provided by Advanced Practice Provider:: No The physician spent face to face time with patient:: Yes Advanced Practice Provider documentation review:: Supervising physician onsite and consulted in the evaluation and care of this patient. The physician did have a face to face encounter with the patient. This chart was documented by the indicated scribe, (Donna Bennett Scribe) and accurately reflects the services I performed and decisions made by me, Clement Carpio MD, as attested by the provider's signature.
[2018-07-05] MEDS ORDERED: ICAR-C PO SCH (13:00)
[2018-07-05] MEDS ORDERED: VITAMIN B-12 PO SCH (13:00)
[2018-07-05 16:44] VITALS: BP 116/50
--- NOTE | 2018-07-05 19:58 | CARDIOLOGY PROGRESS NOTE ---
DATE: 07/05/2018 SUBJECTIVE: Mr. Briscoe is having discomfort presently, which seems to be more pleuritic in nature. He is having no exertional chest pain. PHYSICAL EXAMINATION: Vital Signs: He is afebrile. Heart rate of 77. He had T-max of 100.2 in the last 24 hours. His blood pressure is 108/57. General: He is in no acute distress. Cardiovascular: He sounds to be in a regular rate and rhythm. He has no obvious murmurs. He has no S3. He has no lower extremity edema. Chest: Clear bilaterally. He has no increased work of breathing. Abdomen: Soft, nontender. LABORATORY DATA: Pertinent data. His VQ scan was negative for any pulmonary emboli. His echocardiogram showed a normal ejection fraction of 60% with no obvious regional wall motion abnormalities. No clear evidence of significant valvular abnormalities. His lab data shows a white count of 7.7, hematocrit 32, platelet count is 124. His laboratories yesterday did not show any evidence of elevated troponin. His electrocardiograms during this hospitalization have been in sinus rhythm with no obvious ischemic changes nor evidence of any sort of injury pattern. All of these were reviewed by me. ASSESSMENT: Mr. Briscoe is an 83-year-old gentleman who presented with somewhat atypical chest pain. PLAN: At this point, he has a negative VQ scan. His chest pain is somewhat atypical. His echocardiogram is unremarkable. His electrocardiograms have been unremarkable as well. His laboratories have shown no evidence of elevations in his troponins. From my standpoint, he could be discharged with an outpatient stress done next week. He is not getting a stress today because he had a VQ scan yesterday and the VQ scan radiotracer would not allow an adequate study. I will relay this to the primary team. cc: Manuel Hernandez MD
--- NOTE | 2018-07-05 21:50 | GASTROENTEROLOGY CONSULTATION ---
DATE: 07/05/2018 REASON FOR CONSULTATION: Crohn disease. HPI: Mr. Ruddy Briscoe is a 83-year-old man with a past medical history of diabetes, hypertension, mitral valve prolapse, prostate cancer status post prostatectomy, GERD and Crohn disease who presented on 07/04 with substernal chest pain. He was ruled out for acute coronary syndrome and PE with a V/Q scan. The patient was seen by Cardiology and workup is in progress. GI was consulted because of some abdominal discomfort and diarrhea. The patient reports having no bowel movement for several days and being given a laxative today which caused him to have 1 loose stool today. He also reports taking a stool softener at home which causes him to have loose stools. He is overall a poor historian and has a difficult time of giving a history. He says that his last colonoscopy was 2 years ago and a couple weeks ago he had an upper GI series with Dr. Connors. The only other complaint that he has at this time is weight loss. He says he has been losing 2 pounds per day for several months and says that he has been down 65 pounds in the last 6 months. He denies any nausea, vomiting, dysphagia, rectal bleeding, hematemesis. He does report some shortness of breath and dizziness. REVIEW OF SYSTEMS: As per HPI are otherwise 12 point review of systems negative. PAST MEDICAL HISTORY: Diabetes type 2, hypertension, prostate cancer status post prostatectomy, Crohn disease, mitral valve prolapse, GERD, interstitial cystitis. 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 SOCIAL HISTORY: No smoking, alcohol or drug use. He lives with his and older daughter due to advancing Alzheimer's. FAMILY HISTORY: No significant GI history. ALLERGIES: Hyoscyamine, Pyridium, penicillin, Norvasc. HOME MEDICATIONS: Zocor, vitamin C, aspirin, calcium, magnesium, zinc, vitamin D, Nexium, folic acid, glucosamine, fish oil, potassium chloride, Co-Q10, verapamil. PHYSICAL EXAM: Temperature 98.7 degrees, heart rate 77, respiratory rate 22, blood pressure 108/57, O2 saturation 96% on 2 L nasal cannula.General: Patient is awake, alert, oriented to self and place. No acute distress. HEENT: Sclerae anicteric. Moist mucous membranes. Neck: No JVD. No lymphadenopathy. Supple. Cardiac: Regular rate and rhythm. No murmurs, rubs, or gallops. Lungs: Clear to auscultation bilaterally. Abdomen: Soft, nontender, nondistended. Normoactive bowel sounds. No rebound or guarding. Extremities: No clubbing, cyanosis, or edema. Neurologic: Nonfocal. Moving all extremities symmetrically. Psych: Patient has some word- finding difficulty and difficulty recalling events concerning for mild cognitive decline. LABS: White count of 7.7, hemoglobin 10.9, platelets 124,000, INR 1.03. D-dimer 1.28, sodium 140, potassium 4.1, chloride 108, CO2 of 22, BUN 27, creatinine 1.5, glucose 132, iron 28, ferritin 154, CRP 5.6, folate 17.5, vitamin B12 158. UA is negative. IMAGING: Chest x-ray, questionable left lower lobe atelectasis. CT scan negative for pulmonary embolism. Echocardiogram Doppler was technically difficult. EF was 60%. Some grade 1 diastolic dysfunction. ASSESSMENT AND PLAN: Mr. Ruddy Briscoe is an 83-year-old gentleman who was admitted with chest pain consider atypical, he has been ruled out for acute coronary syndrome and pulmonary embolism with troponins and V/Q scan. Gastroenterology was consulted given reported history of Crohn disease as well as an episode of diarrhea today. The patient reports having some loose stools associated with taking stool softeners recently. He is a poor historian. His labs are notable for iron deficiency and B12 deficiency together. He is not currently having any overt GI bleeding. At this time I recommend that the patient follow up with Dr. Connors as an outpatient for further evaluation of his iron deficiency. I recommend that he be started on oral replacement therapy as well as B12 replacement. The patient has not been on any mesalamine from his standpoint in the past but has had multiple courses of prednisone for diarrhea. His last colonoscopy was reportedly 2 years ago. The patient from our standpoint is stable to be discharge with outpatient followup in the next 1 to 2 weeks. Please call with any questions or concerns. Thank you for this consult.
[2018-07-06] MEDS ORDERED: LOVENOX SUBQ SCH (09:00)
[2018-07-06] MEDS ORDERED: ISOPTIN SR PO SCH (09:00)
--- NOTE | 2018-07-06 15:15 | DISCHARGE SUMMARY ---
ADMISSION DATE: 07/04/2018 DISCHARGE DATE: 07/05/2018 PRINCIPAL DIAGNOSIS: Atypical chest pain. SECONDARY DIAGNOSES: 1. Type 2 diabetes mellitus. 2. Hypertension. 3. Mitral valve prolapse. 4. Iron deficiency anemia. 5. Vitamin B12 deficiency. 6. History of prostate cancer. DISCHARGE MEDICATIONS: Include the followin. Cyanocobalamin 800 mcg p.o. daily. 2. Folic Acid 0.4 mg p.o. daily. 3. Ascorbic Acid 500 mg p.o. once a day. 4. Cholecalciferol 2000 units p.o. daily. 5. Glucosamine chondroitin 1 tab daily. 6. Calcium magnesium zinc 1 tab daily. 7. Aspirin 81 mg daily. 8. Zocor 10 mg p.o. once a day. 9. Verapamil 240 mg p.o. daily. 10. [place] 3 fatty acid 1 daily. 11. Potassium chloride 10 mEq p.o. daily. 12. CoQ10 40 mg p.o. daily. 13. Nexium 40 mg p.o. daily. CONSULTATIONS DURING HOSPITALIZATION: 1. Dr. Manuel Hernandez of Cardiology. 2. Dr. Castro [facility]. SPECIAL PROCEDURES DONE DURING THIS HOSPITAL STAY: V/Q scan . HOSPITAL COURSE: Mr. Ruddy Briscoe is an 83-year-old male who was admitted to the hospital because of chest pain. D-dimer level was high, and we got a V/Q scan and it showed low probability for V/Q. Acute SC was ruled out with negative cardiac enzymes. Patient was seen by Cardiology team. Just because he got dye for his V/Q scan, they could not do a cardiac stress test on him. As such, the patient will be discharged and he will need to follow up with Cardiology at a future date to have his cardiac stress test done. DISCHARGE EXAMINATION: At this time during my evaluation today, his vital signs were as follows. Temperature 98.8 degrees, pulse 81, respirations 18, blood pressure 126/62, and oxygen saturation 96%. HEENT: Atraumatic, normocephalic. Cardiovascular: S1, S2. Respiratory: There is evidence of good air entry bilaterally. Abdomen: Soft, nontender. No masses felt. Extremities: No evidence of edema. Central nervous system: No focal deficits noted. PLAN: Discharge home today. Follow up with Cardiology in the outpatient. cc: Pavel Gutierrez MD
--- NOTE | 2018-07-08 20:58 | Diag Imaging Result Document ---
PROCEDURE NAME: MYOCARDIAL PERF SCAN, STR/REST - 07/05/2018 STUDY: Rest/stress Lexiscan myocardial perfusion study. INDICATION: Patient with chest pain. DESCRIPTION: The patient came into the nuclear lab and received rest injection of technetium 99 sestamibi 11.9 mCi. Multiple tomographic views of the cardiac structures were obtained at rest. Subsequently, the patient underwent infusion of Lexiscan 0.4 mg. At peak infusion, injected with technetium 99 sestamibi 33.2 mCi. Multiple tomographic views of the cardiac structures were obtained following completion of the protocol. SUMMARY OF THE ELECTROCARDIOGRAPHIC PORTION OF THE STUDY: Resting ECG shows sinus rhythm with rate of 58 beats per minute. Resting blood pressure is 156/72. Resting ECG shows low voltage with a nonspecific T wave abnormality across the precordial leads and inferior leads. During the protocol, the heart rate increased to a maximum of 88 beats per minute. The blood pressure dropped to 116/62. The ECG showed a more pronounced T wave abnormality, however it did not look significantly different than the baseline. The patient reported no symptoms. In summary, electrocardiographic response to infusion of Lexiscan is deemed to be unremarkable. SUMMARY OF THE MYOCARDIAL PERFUSION PORTION OF THE STUDY: Poststress tomographic views of the left ventricle showed normal homogeneous distribution of radiotracer throughout the entire left ventricular myocardium. There is no evidence of any post exercise defect. The rest images showed normal perfusion. The polar plots reveal the same. No evidence of any inducible ischemia nor myocardial scar. Gated SPECT showed normal left ventricular systolic function with ejection fraction estimated at 89% with normal ventricular volumes and no wall motion abnormality. The lung/heart ratio is normal at 0.26. TID is normal at 0.4. SUMMARY: In summary, this study shows: 1. Normal electrocardiographic response to an infusion of Lexiscan. 2. Essentially normal poststress myocardial perfusion scan. There is no scintigraphic evidence of pharmacologically induced myocardial ischemia. 3. Normal left ventricular systolic function with ejection fraction estimated at 89% with normal ventricular volumes and no wall motion abnormality. The study represents a low risk for ischemic events. Clinical correlation is recommended. cc: MD Manuel Guerrero MD
--- NOTE | 2018-07-08 21:58 | Extremity Venous Study ---
PROCEDURE NAME: Venous U/S Bilateral Legs - 07/04/2018 REFERRING PHYSICIAN: Dr. Carpio from the Emergency Department. 83-year-old male. DATA CENTER ENGINEER: Jeferson Motley RVT. INDICATIONS: Bilateral lower extremity pain and swelling in addition to an elevated D-dimer. Rule out deep venous thrombosis. FINDINGS: Right common femoral vein and its branches, deep and superficial femoral veins were satisfactorily imaged. They had flow through them and were compressible. Right popliteal vein, deep veins below the right knee were all compressible and had flow through them. Superficial veins of the right lower extremity were compressible throughout their length. The left common femoral vein and its branches, deep and superficial femoral veins were also satisfactorily imaged. They had flow through them and were compressible. Left popliteal vein, deep veins below the left knee were all compressible and had flow through them. Superficial veins the left lower extremity were compressible throughout their length. INTERPRETATION: No evidence of acute deep or superficial venous thrombosis of the bilateral lower extremities. cc: MD Sofy Bains CRNP
== END 2018-07-05 18:59 | disposition home or self-care (01) | DRG 313 ==
LOC: ED 10:57 → EDIPHOLD 15:03 → 3S 17:21
PROVIDERS: ATTEND Internal Medicine
CPT/HCPCS: 71010; 71045; 78452; 78582; 80048; 80061; 81001; 82550; 82607; 82728; 82746; 82948; 83036; 83540; 83550; 83721; 83735; 83880; 84484; 85025; 85379; 85610; 85730; 86140; 86850; 86900; 86901; 87275; 87276; 87804; 93005; 93010; 93306; 93970; 94761; 94799; 96374; 96375; 99285; A9270; A9500; A9539; A9540; J1644; J1650; J2270; J2405; J7030; XXXXX

== ENCOUNTER 2018-07-07 08:20 | Inpatient (IN) ==
--- NOTE | 2018-07-07 08:37 | Diag Imaging Result Doc PS360 ---
EXAM: CT HEAD W/O CONTRAST INDICATION: poss cva TECHNIQUE: This exam was performed using automated exposure control, adjustment of mA or kV according to patient size, and/or use of iterative reconstruction technique. COMPARISON: 05/17/2018 FINDINGS: There is fairly advanced diffuse brain atrophy, stable. There is suggestion of minimal periventricular and subcortical white matter microangiopathy, stable. There is no definite acute infarct given the limited sensitivity of CT versus MRI. There is no discrete intracranial mass, mass effect, or intracranial hemorrhage. The surrounding soft tissues and bony structures are essentially unremarkable. IMPRESSION: Stable chronic changes as described. No evidence of acute pathology by CT. Electronically signed by Ruddy Finch 07/07/2018 8:34 AM
[2018-07-07] MEDS ORDERED: NS 1,000 ML IV ONE (08:50)
[2018-07-07 09:15] LABS: INR 1.06; PROTIME 14.6 Seconds (11.0-16.0)
[2018-07-07 09:16] LABS: PTT 31.9 Seconds (22.3-41.8)
[2018-07-07 09:36] LABS: ALB/GLOB RATIO 1.6; ALBUMIN 3.8 g/dL (3.5-5.0); BASO# 0.02 X1000 (0.0-0.2); BASO% 0.3 % (0.0-0.8); CALCIUM 9.1 mg/dL (8.8-10.2); CREATININE 1.9 mg/dL (0.7-1.2); EOS# 0.01 X1000 (0.0-0.7); EOS% 0.1 % (0.0-10.0); HEMATOCRIT 36.7 % (42.0-52.0); HEMOGLOBIN 12.6 g/dL (14.0-18.0); IMM GRAN# 0.02 X1000 (0.0-0.04); IMM GRAN% 0.3 % (0.0-0.5); LYMPH# 0.37 X1000 (1.2-3.4); LYMPH% 5.2 % (20.5-51.1); MCH 30.7 PG (27-31); MCHC 34.3 g/dL (33-37); MCV 89.3 FL (81-99); MONO# 0.55 X1000 (0.11-0.59); MONO% 7.8 % (1.7-9.3); MPV 11.7 FL (7.4-10.4); NEUT# 6.09 X1000 (1.4-6.5); NEUT% 86.3 % (42.2-75.2); PLT 155 X1000 (130-400); POTASSIUM 4.2 mmol/L (3.5-5.1); RBC 4.11 XMIL (4.7-6.1); RDW 12.4 % (11.5-14.5); TOTAL BILIRUBIN 0.77 mg/dL (0.20-1.00); TOTAL PROTEIN 6.2 g/dL (6.3-8.3); WBC 7.06 X1000 (4.8-10.8)
--- NOTE | 2018-07-07 10:12 | Diag Imaging Result Doc PS360 ---
EXAM: CHEST-1 VIEW INDICATION: AMS TECHNIQUE: One view COMPARISON: 07/04/2018 FINDINGS: Postsurgical changes at the left hemithorax are stable. The minimal subsegmental atelectasis at the left lung base versus scarring is unchanged. No new consolidation is identified. The cardiac silhouette is stable. IMPRESSION: Stable chest with no definite acute pathology by plain radiograph. Electronically signed by Ruddy Finch 07/07/2018 10:10 AM
[2018-07-07 10:21] LABS: UR AMPHETAMINES QUAL NONE DETECTED (NONE DETECT); UR BARBITUATES QUAL NONE DETECTED (NONE DETECT); UR BENZODIAZEPIN QUAL NONE DETECTED (NONE DETECT); UR CANNABINOIDS QUAL NONE DETECTED (NONE DETECT); UR COCAINE QUAL NONE DETECTED (NONE DETECT); UR METHADONE QUAL NONE DETECTED (NONE DETECT); UR OPIATES QUAL NONE DETECTED (NONE DETECT); UR OXYCODONE QUAL NONE DETECTED (NONE DETECT); UR PCP QUAL NONE DETECTED (NONE DETECT)
--- NOTE | 2018-07-07 10:32 | PROVIDER DOCUMENTATION ---
HPI-Neurological Disorder - General Chief Complaint: Stroke-Like Symptoms Stated Complaint: Altered Mental Status, TCC Time Seen by Provider: 07/07/18 08:47 Source: family Allergies/Adverse Reactions: Patient Allergies Allergy/AdvReac Type Severity Reaction Status Date / Time Penicillins Allergy Intermediate RASH Verified 07/07/18 08:44 amlodipine besylate * AdvReac Intermediate palpitation Verified 07/07/18 08:44 [From Norvasc] s butabarbital AdvReac "stops Verified 07/07/18 08:44 [From Pyridium Plus] urine flow" hyoscyamine AdvReac "stops Verified 07/07/18 08:44 [From Pyridium Plus] urine flow" phenazopyridine HCl * AdvReac "stops Verified 07/07/18 08:44 [From Pyridium Plus] urine flow" Home Medications: Home Medication List Medication Instructions Recorded Confirmed Last Taken Type SIMVAstatin [Zocor] 10 mg PO QHS 07/10/12 07/04/18 07/03/18 History Verapamil [Isoptin] 240 mg PO DAILY 07/10/12 07/04/18 07/27/16 08:00 History Ascorbic Acid [Vitamin C] 500 mg PO DAILY 01/28/14 07/04/18 07/27/16 08:00 History Calcium Magnesium Zinc 1 tab PO DAILY 01/28/14 07/04/18 07/27/16 08:00 History Cholecalciferol (Vitamin D3) 2,000 unit PO DAILY 01/28/14 07/04/18 07/27/16 08: 00 History [Vitamin D3] Folic Acid 0.4 mg PO DAILY 01/28/14 07/04/18 07/27/16 08:00 History Gluc Shepherd/Chondro Shepherd A/Vit C/Mn 1 each PO DAILY 01/28/14 07/04/18 07/27/16 08:00 History [Glucosamine Chondroitin Tab] [place]-3 Fatty Acids/Fish Oil [Fish 1 each PO DAILY 01/28/14 07/04/18 07/27/16 08 :00 History Oil 1,000 mg Softgel] Potassium Chloride [Klor-Con M20] 10 meq PO DIRECTED 01/28/14 07/04/18 08:00 History Ubidecarenone [Co Q-10] 400 mg PO DAILY 01/28/14 07/04/1817 08:00 History Aspirin [Aspirin EC] 81 mg PO DAILY 06/30/14 07/04/18 07/27/16 08:00 History Esomeprazole [Nexium] 40 mg PO DAILY 07/04/18 07/04/18 Unknown History Metronidazole 07/04/18 07/04/18 Unknown History Cyanocobalamin [Vitamin B-12] 100 microgm PO DAILY tablet 07/05/18 Unknown Rx - History of Present Illness-Neuro Nature of Presenting Problem: Patient brought in via EMS and family. Great grandson at bedside and gives history. Family states that patient lives alone, but next door to one of his children. last known well time was about 5 pm yesterday. Patient was found sprawled across the bed and very confused. Unsure of head trauma or LOC. patient is normally independent with all ADLs Onset/Duration: reports: unsure Timing: reports: still present Context: reports: other (decreased responsiveness) Character of Altered Mental Status: reports: confused, decreased responsiveness Any recent trauma/injury?: reports: other (unknown) Review of Systems - Adult - REVIEW OF SYSTEMS - ADULT Constitutional: reports: no symptoms reported Past History - Adult - PAST MEDICAL HISTORY-ADULT Review of Records: reports: Old Records Reviewed, Nursing Assessment Review, Medications Reviewed, Social history reviewed & non-contributory. Major Childhood Illnesses: reports: denies history Cardiovascular: reports: arrhythmia, HTN, heart valve problem (MVP), hyperlipidemia, palpitations Respiratory: reports: lung disease (left lower lobectomy) Gastrointestinal: reports: Crohn's, GERD Genitourinary: reports: prostate cancer, other (interstitial cystitis) Musculoskeletal: reports: other (DJD) Neurological: reports: denies history Psychiatric: reports: denies history Endocrine/Immune: reports: denies history Other Conditions: reports: denies history - PRIOR SURGERIES/PROCEDURES Surgical/Procedure History: reports: appendectomy, cholecystectomy, other ( prostate, LL lobectomy) - IMMUNIZATION STATUS Childhood Immunizations: See Nurse Assessment Flu Vaccine: See Nurse Assessment - FAMILY HISTORY Family History: reviewed, not pertinent Physical Exam- Neurological - Physical Exam-Neuro Initial Vital Signs Reviewed: Yes General Appearance: no apparent distress HENMT: normocephalic/atraumatic, moist mucous membranes Head Injury: no evidence of injury Neck: supple Respiratory: chest non-tender, lungs clear, normal breath sounds Cardiovascular: normal peripheral pulses, regular rate, rhythm Abdominal Exam: normal bowel sounds, non tender, soft Lymphatic: no adenopathy Extremity: normal inspection compensation and benefits administrator Exam: normal hearing Progress - PLAN OF CARE/RESULTS Progress/Plan/Lab Results: Vital Signs - 8 hr 07/07/18 08:40 Temperature 98.6 F Pulse Rate 76 Respiratory Rate 20 Blood Pressure 148/80 O2 Sat by Pulse Oximetry 100 Laboratory Results - last 24 hr 07/07/18 07/07/18 07/07/18 08:38 08:38 08:38 WBC 7.06 RBC 4.11 L Hgb 12.6 L Hct 36.7 L MCV 89.3 MCH 30.7 MCHC 34.3 RDW Std Deviation 12.4 Plt Count 155 MPV 11.7 H Immature Gran % (Auto) 0.3 Neut % (Auto) 86.3 H Lymph % (Auto) 5.[address] % (Auto) 7.8 Eos % (Auto) 0.1 Baso % (Auto) 0.3 Immature Gran # (Auto) 0.02 Neut # (Auto) 6.09 Lymph # (Auto) 0.[address] [place] # (Auto) 0.55 Eos # (Auto) 0.01 Baso # (Auto) 0.02 PT INR PTT (Actin FS) Specimen Type Sample Site pH pCO2 HCO3 Base Excess Oxyhemoglobin ABG O2 Saturation ABG Carboxyhemoglobin ABG Methemoglobin Jayce Test A-a O2 Difference Total Hemoglobin Lactate Blood Gas Modality FiO2 % Sodium 140 Potassium 4.2 Chloride 109 H Carbon Dioxide 19 L Anion Gap 12 BUN 34 H Creatinine 1.9 H Estimated GFR/1.73 m2 34 BUN/Creatinine Ratio 18 Glucose 202 H POC Glucose 205 H Calculated Osmolality 293 Calcium 9.1 Total Bilirubin 0.77 AST 21 ALT 18 Alkaline Phosphatase 91 Creatine Kinase 181 Troponin T Pbo-P-Givwgauonle Pept Total Protein 6.2 L Albumin 3.8 Globulin 2.4 Albumin/Globulin Ratio 1.6 Urine Source Urine Color Urine Turbidity Urine pH Ur Specific [place] Urine Protein Ur Glucose (Stick) Ur Ketones (Stick) Urine Blood Urine Nitrite Urine Bilirubin Urobilinogen Dipstick Urine Leukocytes Urine WBC (Auto) Urine RBC (Auto) U Epithel Cells (Auto) Urine Bacteria (Auto) Urine Opiates Screen Ur Oxycodone Screen Ur Methadone, Qual Ur Barbiturates Screen Ur Phencyclidine Scrn Ur Amphetamines Screen U Benzodiazepines Scrn Urine Cocaine Screen U Cannabinoids Screen 07/07/18 07/07/18 07/07/18 08:38 08:38 08:38 WBC RBC Hgb Hct MCV MCH MCHC RDW Std Deviation Plt Count MPV Immature Gran % (Auto) Neut % (Auto) Lymph % (Auto) [facility] % (Auto) Eos % (Auto) Baso % (Auto) Immature Gran # (Auto) Neut # (Auto) Lymph # (Auto) [facility] # (Auto) Eos # (Auto) Baso # (Auto) PT 14.6 INR 1.06 PTT (Actin FS) 31.9 Specimen Type Sample Site pH pCO2 HCO3 Base Excess Oxyhemoglobin ABG O2 Saturation ABG Carboxyhemoglobin ABG Methemoglobin Jayce Test A-a O2 Difference Total Hemoglobin Lactate Blood Gas Modality FiO2 % Sodium Potassium Chloride Carbon Dioxide Anion Gap BUN Creatinine Estimated GFR/1.73 m2 BUN/Creatinine Ratio Glucose POC Glucose Calculated Osmolality Calcium Total Bilirubin AST ALT Alkaline Phosphatase Creatine Kinase Troponin T < 0.010 Hnw-W-Fusckwchqhf Pept 5407 H Total Protein Albumin Globulin Albumin/Globulin Ratio Urine Source Urine Color Urine Turbidity Urine pH Ur Specific [place] Urine Protein Ur Glucose (Stick) Ur Ketones (Stick) Urine Blood Urine Nitrite Urine Bilirubin Urobilinogen Dipstick Urine Leukocytes Urine WBC (Auto) Urine RBC (Auto) U Epithel Cells (Auto) Urine Bacteria (Auto) Urine Opiates Screen Ur Oxycodone Screen Ur Methadone, Qual Ur Barbiturates Screen Ur Phencyclidine Scrn Ur Amphetamines Screen U Benzodiazepines Scrn Urine Cocaine Screen U Cannabinoids Screen 07/07/18 07/07/18 07/07/18 09:00 09:00 11:05 WBC RBC Hgb Hct MCV MCH MCHC RDW Std Deviation Plt Count MPV Immature Gran % (Auto) Neut % (Auto) Lymph % (Auto) [facility] % (Auto) Eos % (Auto) Baso % (Auto) Immature Gran # (Auto) Neut # (Auto) Lymph # (Auto) [facility] # (Auto) Eos # (Auto) Baso # (Auto) PT INR PTT (Actin FS) Specimen Type ARTERIAL Sample Site R RADIAL pH 7.39 pCO2 28 L HCO3 19.6 L Base Excess -6.9 L Oxyhemoglobin 97.2 ABG O2 Saturation 99.5 ABG Carboxyhemoglobin 1.60 ABG Methemoglobin 0.7 Jayce Test YES A-a O2 Difference 0.0 Total Hemoglobin 10.8 L Lactate 0.60 Blood Gas Modality ROOM AIR FiO2 % 21.0 Sodium Potassium Chloride Carbon Dioxide Anion Gap BUN Creatinine Estimated GFR/1.73 m2 BUN/Creatinine Ratio Glucose POC Glucose Calculated Osmolality Calcium Total Bilirubin AST ALT Alkaline Phosphatase Creatine Kinase Troponin T Lmf-H-Eflupvukemw Pept Total Protein Albumin Globulin Albumin/Globulin Ratio Urine Source CATH Urine Color YELLOW Urine Turbidity CLEAR Urine pH 5.5 Ur Specific [place] 1.007 Urine Protein TRACE A Ur Glucose (Stick) NEGATIVE Ur Ketones (Stick) TRACE A Urine Blood MODERATE A Urine Nitrite NEGATIVE Urine Bilirubin NEGATIVE Urobilinogen Dipstick NORMAL Urine Leukocytes NEGATIVE Urine WBC (Auto) <10 Urine RBC (Auto) 10-20 A U Epithel Cells (Auto) <10 Urine Bacteria (Auto) NEGATIVE Urine Opiates Screen NONE DETECTED Ur Oxycodone Screen NONE DETECTED Ur Methadone, Qual NONE DETECTED Ur Barbiturates Screen NONE DETECTED Ur Phencyclidine Scrn NONE DETECTED Ur Amphetamines Screen NONE DETECTED U Benzodiazepines Scrn NONE DETECTED Urine Cocaine Screen NONE DETECTED U Cannabinoids Screen NONE DETECTED Orders Category Date Time Status Lujan Cath Insertion ORDERED Care 07/07/18 08:53 Active CHEST-1 VIEW [RAD] Stat Exams 07/07/18 08:[address] HEAD W/O CONTRAST [CT] Stat Exams 07/07/18 08:20 Completed ABG [RESP] Routine Lab 07/07/18 11:05 Completed CBC WITH ELECTRONIC DIFF [HEME] Stat Lab 07/07/18 08:38 Completed CK PROFILE [SP CHEM] Stat Lab 07/07/18 08:38 Completed COMPREHENSIVE METABOLIC PANEL [CHEM] Stat Lab 07/07/18 08:38 Completed PRO B-NATRIURETIC PEPTIDE Stat Lab 07/07/18 08:38 Completed PROTIME WITH INR [COAG] Stat Lab 07/07/18 08:38 Completed PTT [COAG] Stat Lab 07/07/18 08:38 Completed TROPONIN T Stat Lab 07/07/18 08:38 Completed UA [URINALYSIS W/POSS RFLX CULT] [URINALYSIS] Stat Lab 07/07/18 09:00 Results URINE DRUG SCREEN Stat Lab 07/07/18 09:00 Completed URINE MANUAL MICROSCOPIC [URINALYSIS] Stat Lab 07/07/18 09:00 Results 0.9% Sodium Chloride Inj [Ns] 1,000 ml Med 07/07/18 08:50 Discontinued IV 999 mls/hr Result Diagrams: 07/07/18 08:38 07/07/18 08:38 - REASSESSMENT Reassessment #1 Time Reassessed: 12:45 Status: improving - CONSULTS/PCP/HOSPITALIST Notification #1 *Consult/PCP/Hospitalist*: Dr. Khoury Time Discussed: 12:46 Consult Disposition: Admit Departure - Departure Date of Disposition Decision: 07/07/18 Time of Disposition Decision: 12:46 DIAGNOSIS: Altered mental status, unspecified Disposition: ADMITTED INPATIENT 09 Certified Medical Emergency: Emergent Condition: Stable Referrals and Follow-Ups: None,PCP [Primary Care Provider] - - Critical Care Note This patient required my direct & personal management of CC.: No Attestation - Physician/ [place] Attestation Patient care was provided by Advanced Practice Provider:: No The physician spent face to face time with patient:: Yes Advanced Practice Provider documentation review:: Supervising physician onsite and consulted in the evaluation and care of this patient. The physician did have a face to face encounter with the patient. - NIH Stroke Scale NIH Type: Initial Evaluation Level of Consciousness: 1-Drowsy, but arousable with minimal stimulation LOC Questions (ask month and age): 2-Both Incorrect LOC Commands (ask to open & close eyes;make a fist, let go): 0-Obeys Both Correctly Best Gaze (horizontal eye movement): 0-Normal Visual (use finger movement, counting or visual threat): 0-No Visual Loss Facial Palsy (show teeth or raise eyebrows & close eyes tght: 0-Symmetrical Movement Motor Function-left arm: 0-Normal Motor Function-right arm: 0-Normal Motor Function-left le-Normal Motor Function-right le-Normal Limb Ataxia(hoblto-miwx-qqithf, or heel to bowman): 0-No Ataxia Sensory(pin prick to face,arms,trunk,legs-compare side/side): 0-No Ataxia Best Language(name item/read sentence.Ex-Down to Earth): 0-No Aphasia Dysarthria(Pt read words or say words Ex.Mama,Tip-Top,Thanks: 1-Mild-Mod Slurring Words Extinction and Inattention: 0-Normal Modified Mireya Score Criteria: 0-no symptoms
[2018-07-07 11:21] LABS: ALLEN TEST YES; BE -6.9 mmoll (-3.0-3.0); BLOOD TYPE ARTERIAL; HCO3-(ACT) 19.6 mmoll (20.0-26.0); METHB 0.7 % (0.0-1.5); O2HB 97.2 % (95.0-99.0); PCO2(98.6) 28 mmHg (35-45); SAMPLE BLOOD; SAO2 99.5 % (95.0-100.0); THB 10.8 g/dL (11.5-17.4); pH(98.6) 7.39 (7.35-7.45)
[2018-07-07 11:22] LABS: MODALITY ROOM AIR
[2018-07-07 12:12] LABS: URINE SOURCE CATH
[2018-07-07 12:20] LABS: BILIRUBIN URINE NEGATIVE (NEGATIVE); BLOOD URINE MODERATE (NEGATIVE); COLOR YELLOW; GLUCOSE URINE NEGATIVE (NEGATIVE); KETONE URINE TRACE mg/dL (NEGATIVE); LEUKOCYTES URINE NEGATIVE (NEGATIVE); NITRITE URINE NEGATIVE (NEGATIVE); PH URINE 5.5; PROTEIN URINE TRACE mg/dL (NEGATIVE); SP GRAVITY URINE 1.007; TURBIDITY URINE CLEAR (CLEAR); UROBILINOGEN URINE NORMAL (NORMAL)
[2018-07-07 12:22] LABS: UR EPITHELIAL CELLS <10 /HPF (<10); URINE BACTERIA NEGATIVE /HPF; URINE WBC <10 /HPF (<10)
[2018-07-07 12:49] LABS: URINE YEAST NONE SEEN
[2018-07-07] MEDS ORDERED: ZOFRAN IV PRN (13:33)
[2018-07-07] MEDS: NS 1,000 ML IV SCH (13:50)
--- NOTE | 2018-07-07 14:14 | HISTORY AND PHYSICAL ---
SUBJECTIVE: He just was discharged on Sunday from this hospital. At that time, he had come in with chest pain. He had an elevated D-dimer, and so they did a V/Q scan which was low probability. His enzymes apparently were negative, and he went home on Sunday. His daughter states that he seemed to be mentally okay, but was weak. Her brother had brought him over some supper on Sunday. Sunday she had seen him, and he was complaining of being weak, not eating much. This morning, though, brother found him I think on the floor by the bed, not sure how long he had been laying there. He was disoriented and lethargic. PAST MEDICAL HISTORY: 1. Diabetes mellitus, type 2. 2. Hypertension. 3. Prostate cancer, status post prostatectomy. 4. History of Crohn disease. 5. Mitral valve prolapse. 6. Gastroesophageal reflux disease. 7. Interstitial cystitis. 8. He was admitted on 07/04/2018 for chest pain. V/Q scan was low probability, and cardiac enzymes were negative at that time. Looking back, an echocardiogram was done on 07/04/2018, a technically difficult study. Aortic valve looked like a trileaflet valve with good opening and closure. No elevated pressures. Left ventricular dimension. Estimated left ventricular ejection fraction appeared to be normal. Ejection fraction they estimated at 60%. No regional wall motion abnormalities. Atrial chamber sizes appear to be normal. No significant valvular dysfunction. SURGICAL HISTORY: 1. Appendectomy. 2. Cholecystectomy. 3. 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 4. Prostatectomy. SOCIAL HISTORY: No alcohol or alcohol or illicit drugs. His lives by himself, but one of his daughters lives right next door. They did mention there was some dementia and felt he was having advancing dementia. FAMILY HISTORY: None reported. ALLERGIES: Hyoscyamine, Pyridium, penicillin, Norvasc,. HOME MEDICATIONS: When they sent him home on Sunday, he had: 1. Vitamin B12 of 800 mcg a day. 2. Folic acid 0.4 mg a day. 3. Ascorbic acid 500 mg once a day. 4. Cholecalciferol 2000 units daily. 5. Glucosamine chondroitin 1 tablet daily. 6. Calcium, magnesium, and zinc tablet 1 a day. 7. Aspirin 81 mg a day. 8. Zocor 10 mg a day. 9. Verapamil 240 mg a day. 10. [place]-3 fatty acids 1 a day. 11. Potassium chloride 10 mEq a day. 12. CoQ10 40 mg daily. 13. Nexium 40 mg a day. OR NURSE MANAGER: Dr. Manuel Hernandez. UPPERS EDGE BURNISHER: Dr. Castro was the after school program assistant who was following him. PRIMARY CARE PHYSICIAN: He has no primary care physician listed. REVIEW OF SYSTEMS: He was not able to give us much. He did not show any sign of pain or discomfort at this point. PHYSICAL EXAMINATION: VITAL SIGNS: Temperature 98.6 degrees, pulse 76, respirations 20, blood pressure 148/80. EYES: Pupils are equal and round. Conjunctiva pink. Sclerae clear. LUNGS: Clear in all lung mayen anterior, lateral. NECK: No distended neck veins. His neck appeared supple. No thyromegaly. CARDIOVASCULAR: Regular rhythm and rate without murmur or S3. PMI nondisplaced. Carotid, radial, and femoral pulses 2+ and symmetrical. ABDOMEN: Soft. No organomegaly appreciated. EXTREMITIES: No pedal edema. HENT: Mucous membranes were dry. No lesions in the mucosa membranes. LYMPHATIC: No sign of cervical adenopathy or supraclavicular adenopathy. WEIGHT/HEIGHT: Weight 150 pounds, height 5 feet 11 inches. SKIN: Did not see any skin rashes. LABORATORY DATA: Sodium 140, potassium 4.2, chloride 109, BUN 34, creatinine 1.9 (I think his baseline is around 1.6). Transaminases were normal. AST 21, ALT 18. Troponin less than 0.01. ProBNP was 5407. His CK was 181. Urine drug screen was negative for opiates, oxycodone, methadone, barbiturates, phencyclidine, amphetamines, benzodiazepines, cocaine, and cannabinoids. Urinalysis really negative for bacteria and less than 10 white blood cells. Blood gas on arrival: The pH was 7.39, pCO2 was 28, O2 saturations were 99%. His chest x-ray: Stable chest. No definite acute pathology. No infiltrates. He had a CT of the head done without contrast: Stable chronic changes. No evidence of acute pathology. No bleeding. ASSESSMENT AND PLAN: 1. Weakness and appears to have intravascular volume depletion. Not sure how long he laying on the floor. His CK is not elevated, so we will watch that. We will check a CK again in the morning worse. We will check a T4 and TSH and B12 and folate. I do not see any source of infection at this point. 2. Previous admission for chest pain with negative enzymes. Has had a V/Q scan was low probability. We will check again serial troponin and CKs and serial EKGs. 3. Diabetes mellitus, type 2. Check patterned sugars. Check hemoglobin A1c in the morning and put him on a low end sliding scale. 4. History of mitral valve prolapse. Aware. 5. History of B12 deficiency in the past. Aware. 6. History of iron deficiency anemia. His hematocrit is 36, hemoglobin 12.6, with an MCV of 89, but we could check again and check some iron studies of ferritin, serum iron, and total iron binding capacity. Note that he appears to have a normal left ventricle from an echocardiogram that was done just a couple weeks ago or a week ago, so we will give him normal saline at 85 mL an hour. We will continue his current medications. His altered mental status and metabolic encephalopathy I think are probably multifactorial. We are not sure how long he laid on the floor, and it may just be from dehydration. cc: Jayce Khoury MD
[2018-07-07] MEDS: CYANOCOBALAMIN IM SCH (17:15)
[2018-07-07] MEDS: HUMULIN R SUBQ SCH ×2 (17:31→21:03)
[2018-07-07] MEDS: ZOCOR PO SCH (22:37)
[2018-07-08] MEDS: NS 1,000 ML IV SCH ×2 (01:20→16:25)
[2018-07-08] MEDS: HUMULIN R SUBQ SCH ×4 (07:43→22:47)
[2018-07-08] MEDS: PRILOSEC PO SCH (07:44)
[2018-07-08 07:45] LABS: BASO# 0.01 X1000 (0.0-0.2); BASO% 0.2 % (0.0-0.8); EOS# 0.13 X1000 (0.0-0.7); EOS% 2.3 % (0.0-10.0); HEMATOCRIT 36.5 % (42.0-52.0); HEMOGLOBIN 12.2 g/dL (14.0-18.0); IMM GRAN# 0.02 X1000 (0.0-0.04); IMM GRAN% 0.4 % (0.0-0.5); LYMPH% 10.7 % (20.5-51.1); MCH 30.6 PG (27-31); MCHC 33.4 g/dL (33-37); MCV 91.5 FL (81-99); MONO# 0.48 X1000 (0.11-0.59); MONO% 8.6 % (1.7-9.3); MPV 11.3 FL (7.4-10.4); NEUT# 4.36 X1000 (1.4-6.5); NEUT% 77.8 % (42.2-75.2); PLT 169 X1000 (130-400); RBC 3.99 XMIL (4.7-6.1); RDW 12.4 % (11.5-14.5)
[2018-07-08 07:49] LABS: INR 1.11; PROTIME 15.2 Seconds (11.0-16.0)
[2018-07-08 07:50] LABS: PTT 30.5 Seconds (22.3-41.8)
[2018-07-08 08:04] LABS: ALB/GLOB RATIO 1.4; ALBUMIN 3.5 g/dL (3.5-5.0); CREATININE 1.4 mg/dL (0.7-1.2); MAGNESIUM 1.7 mg/dL (1.5-2.7); POTASSIUM 4.1 mmol/L (3.5-5.1); TOTAL BILIRUBIN 0.88 mg/dL (0.20-1.00)
--- NOTE | 2018-07-08 08:08 | Diag Imaging Result Doc PS360 ---
EXAM: CHEST-2 VIEWS 07/08/2018 HISTORY: sob TECHNIQUE: PA and lateral chest COMMENT: There is blunting of the left costophrenic angle which has not changed since 06/30/2014 and is likely due to fibrosis. Otherwise the lungs are clear and unchanged. IMPRESSION: No acute disease. Electronically signed by Tate Paulino 07/08/2018 8:05 AM
[2018-07-08 08:19] LABS: CK-MB 2.29 ng/mL (0.0-5.0); FREE T4 1.06 ng/dL (0.93-1.70); TSH 3.59 uIUmL (0.27-4.20)
[2018-07-08] MEDS ORDERED: LEXISCAN ONE (09:14)
[2018-07-08] MEDS: VITAMIN B-12 PO SCH ×2 (11:11→11:22)
[2018-07-08] MEDS: COENZYME Q10 PO SCH (11:11)
[2018-07-08] MEDS: ISOPTIN SR PO SCH (11:11)
[2018-07-08] MEDS: ASPIRIN EC PO SCH (11:11)
[2018-07-08] MEDS: FOLIC ACID PO SCH (11:11)
--- NOTE | 2018-07-08 11:11 | EKG Report ---
Test Performed on : 07/07/2018 08:37:12 AM Test Reason : ED. NO EKG ORDER FOR MUSE Blood Pressure : / mmHG Vent. Rate : 079 BPM Atrial Rate : 079 BPM P-R Int : 136 ms QRS Dur : 090 ms QT Int : 394 ms P-R-T Axes : 018 -73 000 degrees QTc Int : 451 ms Normal sinus rhythm. Left axis deviation Low voltage QRS Septal infarct (cited on or before 04-JUL-2018) Abnormal ECG When compared with ECG of 05-JUL-2018 06:43, Nonspecific T wave abnormality, worse in Anterior leads Unconfirmed Result
[2018-07-08] MEDS: GLUCOSAMINE 500 MG/CHONDROITIN 400 MG PO SCH (11:12)
[2018-07-08] MEDS: FISH OIL CONCENTRATE PO SCH (11:12)
[2018-07-08] MEDS: VITAMIN D PO SCH (11:12)
[2018-07-08] MEDS: VITAMIN C PO SCH (11:12)
[2018-07-08] MEDS: CALTRATE 600 + D PO SCH (11:13)
[2018-07-08] MEDS: CYANOCOBALAMIN IM SCH (11:13)
[2018-07-08] MEDS: TYLENOL PO PRN (16:24)
--- NOTE | 2018-07-08 18:21 | PROGRESS NOTE ---
DATE: 07/08/2018 SUBJECTIVE: He is still pretty lethargic, sleeping. Family at the bedside said he seems to have difficulty opening his left eye. I do not appreciate any specific focal deficits. He was found lying down by his bed, and may have been there all night. His labs did not reveal significant rhabdomyolysis, and his troponin was less than 0.01. Creatinine was 1.4. EXAM: Vital Signs: Remains afebrile. Pulse 79, respirations 20, blood pressure 120/80. HEENT: Pupils appear equal. Neck: No distended neck veins. Lungs: Clear anterior and posterior. Cardiovascular: Regular rhythm and rate, without murmur or S3. Abdomen: Soft. Skin: Warm and dry. Urine output was 1300 mL. Blood sugar 150, 121, 173. EKG from this morning: Normal sinus rhythm, left axis deviation, has poor R-wave progression V1 through V3, but really no significant change. His chest x-ray from this morning: No acute disease. Blunting of the left costovertebral angle, likely from fibrosis. ASSESSMENT AND PLAN: 1. Weakness, intravascular volume depletion. Had been laying at home on his floor, probably most of the night. I do not see any significant rhabdomyolysis. We will continue hydration and see. I do not see any evidence of focal neurologic deficits. I do not see any evidence of a stroke. His thyroid looks okay. His cortisol level looks okay. 2. Apparently, had an episode of atrial fibrillation today, but then converted back to sinus rhythm spontaneously. 3. He has had admissions recently for chest pain. V/Q scan was low probability. His cardiac enzymes were negative at that time. He was asked to have followup with Cardiology. 4. Diabetes mellitus type 2. His sugars appear to be well-controlled. 5. History of mitral valve prolapse. 6. B12 deficiency in the past. He is getting supplemented. 7. History of iron deficiency anemia. At this point, continue fluids, and see what his clinical response is. Will get Psychology Instructor involved. We are looking over his orders. He is on Zocor 10 mg at bedtime, vitamin C 500 mg daily, aspirin 81 mg a day, vitamin D3 2000 units a day. We have given him B12 1000 mcg IM daily for 3 days, as well as his p.o. supplement that he gets every day, with 100 mcg folic acid is 0.4 mg a day. He is getting normal saline at 85 mL an hour, Prilosec 40 mg a day, and verapamil SR 240 mg a day. cc: Jayce Khoury MD
[2018-07-08] MEDS: ZOCOR PO SCH (22:49)
[2018-07-08] MEDS ORDERED: NS 500 ML IV ONE (23:45)
[2018-07-09] MEDS: HUMULIN R SUBQ SCH ×4 (06:18→21:15)
[2018-07-09] MEDS: NS 1,000 ML IV SCH (06:20)
[2018-07-09] MEDS: PRILOSEC PO SCH (07:01)
[2018-07-09 07:58] LABS: HEMATOCRIT 34.4 % (42.0-52.0); HEMOGLOBIN 11.1 g/dL (14.0-18.0); MCH 30.7 PG (27-31); MCHC 32.3 g/dL (33-37); MCV 95.3 FL (81-99); MPV 10.6 FL (7.4-10.4); RBC 3.61 XMIL (4.7-6.1); RDW 12.9 % (11.5-14.5); WBC 5.08 X1000 (4.8-10.8)
[2018-07-09 08:28] LABS: ALB/GLOB RATIO 1.2; ALBUMIN 2.9 g/dL (3.5-5.0); CALCIUM 8.6 mg/dL (8.8-10.2); CREATININE 1.3 mg/dL (0.7-1.2); TOTAL BILIRUBIN 0.62 mg/dL (0.20-1.00); TOTAL PROTEIN 5.4 g/dL (6.3-8.3)
[2018-07-09] MEDS: VITAMIN D PO SCH (09:28)
[2018-07-09] MEDS: FOLIC ACID PO SCH (09:28)
[2018-07-09] MEDS: FISH OIL CONCENTRATE PO SCH (09:29)
[2018-07-09] MEDS: ASPIRIN EC PO SCH (09:29)
[2018-07-09] MEDS: VITAMIN C PO SCH (09:29)
[2018-07-09] MEDS: CALTRATE 600 + D PO SCH (09:29)
[2018-07-09] MEDS: GLUCOSAMINE 500 MG/CHONDROITIN 400 MG PO SCH (09:29)
[2018-07-09] MEDS: CYANOCOBALAMIN IM SCH (09:30)
[2018-07-09] MEDS: ISOPTIN SR PO SCH (09:38)
[2018-07-09] MEDS: COENZYME Q10 PO SCH (11:33)
[2018-07-09] MEDS: SODIUM BICARBONATE PO SCH ×2 (11:41→21:15)
[2018-07-09] MEDS ORDERED: SYSTANE EYE DROPS BOTH EYES ONE (12:15)
[2018-07-09] MEDS: VITAMIN B-12 PO SCH (15:42)
[2018-07-09] MEDS: TYLENOL PO PRN (16:11)
[2018-07-09] MEDS: MEGACE LIQUID PO SCH ×2 (16:16→21:15)
[2018-07-09] MEDS ORDERED: SEROQUEL PO PRN (17:13)
[2018-07-09] MEDS ORDERED: SEROQUEL PO ONE (17:13)
[2018-07-09] MEDS ORDERED: SEROQUEL ONE (17:52)
[2018-07-09] MEDS ORDERED: CLINIMIX E 4.25%-5% SOLUTION 1,000 ML ONE (17:52)
[2018-07-09] MEDS: CLINIMIX E 4.25%-5% SOLUTION 1,000 ML IV SCH (17:53)
--- NOTE | 2018-07-09 17:57 | CONSULTATION ---
DATE OF CONSULTATION: 07/09/2018 REASON FOR CONSULTATION: Altered mental status. HISTORY OF PRESENT ILLNESS: This is an 83-year-old male who was admitted 2 days ago with mental status changes. History is from the daughter at bedside and chart review. Apparently the patient was discovered on Sunday I believe sitting with his knees on the floor and his upper body across the bed. He had his eyes closed. He was confused. EMS was called. Family had spoken to him the evening prior, and he seemed okay. He does live alone but has a daughter who lives right next door. He is typically independent with ADLs; however, on further questioning, the daughter at bedside says that for the last couple of years or so, they have noticed some changes in his memory and thinking. He has had prominent difficulty remembering things. At times he seems to think that events have happened that have not happened. More recently , he has had some difficulty with finances. He typically is very good with this; however, he is a landlord for some commercial properties and has recently been forgetting who he has collected rent from and who he has not yet collected rent from. He still drives. He has no formal diagnosis of dementia and has not been evaluated. He is not taking medication for this. The patient had reported subjective fever, cough, congestion and chest pain for the last few months. He was recently admitted and discharged here with chest pain evaluation. 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 FAMILY HISTORY: No strokes or seizures. SOCIAL HISTORY: No alcohol, tobacco or illicits. He lives alone, and one of his daughters lives right next door. ALLERGIES: Multiple listed in the chart and reviewed. HOME MEDICATIONS: From his last discharge on Sunday were reviewed and include aspirin 81 mg, vitamin B12, folic acid, Zocor, verapamil, Co-Q10. REVIEW OF SYSTEMS: Unable to obtain due to the patient's mental status. PHYSICAL EXAMINATION: Vital signs: He has been afebrile. Blood pressure was 148/80 on admission, currently 146/72. Pulse 60s to 70s. Respirations 15. Saturation 98 % on room air. Mr. Briscoe was supine in bed. He is awake and alert at the moment. He is agitated and trying to get out of bed. He is trying to pull out his IV lines and his Lujan catheter. He regards. He follows some simple commands, not complex ones. He needs redirecting frequently. He is not oriented. No significant dysarthria. No definite language disturbance. His pupils are asymmetric, and apparently that is not new for him. His left pupil is about 3 mm, and I do not see definite reactivity; however, he is persistent with refusal at passive eye opening, so it is difficult to general adjuster. The right eye pupil appears to be about 2 to 2.5 mm and I believe reactive. His gaze appeared to be conjugate. I could not adequately test ocular movements because of his resistance. Face appears symmetric. He raises his eyebrows. He does seem to keep his left eye more closed, whereas the right eye at times will open up correction. He had apparently reported binocular diplopia to the nurse earlier today but does not participate with me today for history or exam. Tongue is midline. I could not visualize the palate. No meningismus. He is strong and using all 4 limbs equally. He responds to noxious stimuli equally in the limbs. Reflexes are 1+ at the knees. I could not definitely elicit ankle jerks, 2+ at the wrists. No clonus. Plantar response with excessive withdraw but appeared to be downgoing. I did not test his gait. He did not cooperate for coordination testing. DIAGNOSTIC DATA: Head CT performed 07/07/2018 personally reviewed. It did show advanced diffuse brain atrophy. No acute findings. White count normal. Sodium normal. BUN is 34, creatinine was 1.9 on admission and now 27 and 1.3. Creatinine has been up in the past. BUN is higher than in the past. Blood sugars 80s to 200. Calcium 8.6. Normal magnesium. Normal AST and ALT. Toxicology negative. No microbiology. ASSESSMENT AND PLAN: Global encephalopathy, uncertain etiology. I do not find definite focal features on exam, although he was not cooperative during my time at the bedside. Negative head CT is reassuring, though. I will order an MRI and MRA of the brain to further evaluate for stroke given his complaints of diplopia and my inability to fully assess him as well as his mental status changes. I suspect he does have major neurocognitive disorder/dementia that has been undiagnosed and untreated and as such, he would be prone to more protracted encephalopathy. I would continue frequent reorienting during his time here. Thank you for the consultation. cc: Lexie Guidry MD MTDD
--- NOTE | 2018-07-09 17:59 | PROGRESS NOTE ---
DATE: 07/09/2018 SUBJECTIVE: The patient has been having periods of confusion. He is able to recognize family, however, he is talking about things that do not make sense. OBJECTIVE: Vital Signs: Temperature 97.9, blood pressure 134/67, heart rate 73, respirations 16, O2 saturation 99% on room air. General: This is a chronically ill-appearing, elderly male, lying in bed in no acute distress. Heart: S1, S2 normal. Regular rate and rhythm. Lungs: Equal air entry bilaterally. No crackles. No rales. Abdomen: Positive bowel sounds. Soft, nontender, nondistended. Extremities: No edema, no cyanosis. Neurologic: The patient is awake, but confused. LABS: White blood cell count 5, hemoglobin 11, hematocrit 34, platelets 152. Sodium 142, potassium 4, chloride 114, CO2 of 15, BUN 27, creatinine 1.3, glucose 152. ASSESSMENT AND PLAN: 1. Global encephalopathy. The etiology is unknown. The patient does not have any evidence of an active infection. We will consult with Neurology for further assistance. 2. Vitamin D deficiency. Will start the patient on vitamin D replacement. 3. Normal anion gap metabolic acidosis. Will start the patient on sodium bicarbonate. 4. Acute kidney injury. Likely secondary to volume depletion, improved. 5. Protein calorie malnutrition. The patient is not eating very much. We will start Clinimix. 6. Deep vein thrombosis prophylaxis. Will start the patient on sequential compression devices. 7. Continue with physical therapy. cc: Radha José MD
[2018-07-09] MEDS: LOVENOX SUBQ SCH (20:25)
[2018-07-09] MEDS: ZOCOR PO SCH (21:15)
[2018-07-09] MEDS: SYSTANE EYE DROPS BOTH EYES SCH (21:15)
[2018-07-10 04:47] LABS: ALLEN TEST YES; BE -2.8 mmoll (-3.0-3.0); BLOOD TYPE ARTERIAL; HCO3-(ACT) 22.7 mmoll (20.0-26.0); METHB 0.7 % (0.0-1.5); O2(CT) 15.2 mL/dL (15.0-23.0); O2HB 93.8 % (95.0-99.0); PCO2(98.6) 29 mmHg (35-45); PO2(98.6) 68 mmHg (60-100); SAMPLE BLOOD; SAO2 95.6 % (95.0-100.0); THB 11.5 g/dL (11.5-17.4); pH(98.6) 7.45 (7.35-7.45)
[2018-07-10] MEDS: PRILOSEC PO SCH (06:02)
[2018-07-10] MEDS: CLINIMIX E 4.25%-5% SOLUTION 1,000 ML IV SCH ×3 (06:06→20:31)
[2018-07-10] MEDS: HUMULIN R SUBQ SCH ×4 (06:07→20:26)
[2018-07-10 08:05] LABS: AGAP 9; BUN 23 mg/dL (8-22); CALCIUM 8.8 mg/dL (8.8-10.2); CHLORIDE 109 mmol/L (98-107); COSMO 280; CREATININE 1.1 mg/dL (0.7-1.2); ESTIMATED GFR > 60; GLUCOSE 113 mg/dL (70-104); POTASSIUM 4.1 mmol/L (3.5-5.1); SODIUM 138 mmol/L (136-145); TCO2 20 mmol/L (25-35)
[2018-07-10 08:08] LABS: HEMATOCRIT 35.1 % (42.0-52.0); HEMOGLOBIN 12.2 g/dL (14.0-18.0); MCH 31.4 PG (27-31); MCHC 34.8 g/dL (33-37); MCV 90.5 FL (81-99); MPV 10.9 FL (7.4-10.4); RBC 3.88 XMIL (4.7-6.1); RDW 12.3 % (11.5-14.5); WBC 6.09 X1000 (4.8-10.8)
[2018-07-10] MEDS: ASPIRIN EC PO SCH (09:42)
[2018-07-10] MEDS: VITAMIN C PO SCH (09:42)
[2018-07-10] MEDS: FISH OIL CONCENTRATE PO SCH (09:43)
[2018-07-10] MEDS: CALTRATE 600 + D PO SCH (09:43)
[2018-07-10] MEDS: MEGACE LIQUID PO SCH ×2 (09:43→20:25)
[2018-07-10] MEDS: VITAMIN D PO SCH (09:43)
[2018-07-10] MEDS: SODIUM BICARBONATE PO SCH ×3 (09:43→20:48)
[2018-07-10] MEDS: ISOPTIN SR PO SCH (09:43)
[2018-07-10] MEDS: GLUCOSAMINE 500 MG/CHONDROITIN 400 MG PO SCH (09:43)
[2018-07-10] MEDS: FOLIC ACID PO SCH (09:43)
[2018-07-10] MEDS: COENZYME Q10 PO SCH (09:44)
--- NOTE | 2018-07-10 12:02 | PROGRESS NOTE ---
DATE: 07/10/2018 Dr. Guidry saw Mr. Briscoe for initial neurology consultation. He has a global encephalopathy and likely baseline cognitive impairment. This admission, noncontrast CT of the head was unremarkable. Labs showed admission BUN 34, later 23 which is closer to his baseline. Urine drug screen was all negative. He has been afebrile. Systolic blood pressures have ranged 90s to 150s. Brain MRI and MRA are ordered. Today, his clinical appearance is similar to what Dr. Guidry noted yesterday. He may be a little bit more attentive and a little bit more able to assist with his care today, but there is not a major change. IMPRESSION: Global encephalopathy, uncertain etiology. Further plans will depend on the MRI/MRA findings and on his clinical course. With suspected baseline dementia, cholinesterase inhibitor trial might be considered, when practical, but that is not urgent. Thanks for asking Neurology to see Mr. Briscoe. cc: MD RAAD Sarkar III
--- NOTE | 2018-07-10 13:42 | Diag Imaging Result Doc PS360 ---
EXAM: MRI BRAIN W/O CONTRAST INDICATION: eval stroke COMPARISON: No prior MRIs available for comparison. FINDINGS: There are foci of high signal on diffusion involving the left and, to a lesser degree, the right side of the thalamus. On the left, this signal abnormality extends into the left cerebral peduncle. However, there is no corresponding low signal on ADC map. These probably represents a subacute infarcts that has begun to pseudonormalize on the ADC map. There is corresponding high signal on the T2 and FLAIR sequences. There is mild periventricular white matter microangiopathy. There is fairly advanced diffuse atrophy. There is no discrete intracranial mass, mass effect, or intracranial hemorrhage. The surrounding soft tissues and bony structures are essentially unremarkable. IMPRESSION: Subacute infarcts involving the thalamus bilaterally as well as the left cerebral peduncle. Electronically signed by Ruddy Finch 07/10/2018 1:39 PM
--- NOTE | 2018-07-10 14:11 | Diag Imaging Result Doc PS360 ---
EXAM: MRA BRAIN W/O CONTRAST INDICATION: stroke TECHNIQUE: Axial 2-D [id number] images through the [place] were obtained in usual fashion. 3-D MIPS were then generated. COMPARISON: None. FINDINGS: There is artifact related to motion artifact, which somewhat obscures the distal branches of the cerebral arteries. This is most significant at the automobile wrecker bilaterally were only the proximal portions can be identified. There is no evidence of flow-limiting stenosis, vascular malformation, or cerebral aneurysm involving the visualized arteries comprising the [place] including the anterior cerebral arteries, middle cerebral arteries, and proximal posterior cerebral arteries. IMPRESSION: Somewhat limited due to motion artifact. However, no evidence of flow-limiting stenosis. Electronically signed by Ruddy Finch 07/10/2018 2:09 PM
[2018-07-10] MEDS: SYSTANE EYE DROPS BOTH EYES SCH (17:42)
[2018-07-10] MEDS: LOVENOX SUBQ SCH (20:25)
[2018-07-10] MEDS: LIPITOR PO SCH ×3 (20:30→20:46)
--- NOTE | 2018-07-11 05:43 | PROGRESS NOTE ---
DATE: 07/10/2018 SUBJECTIVE: The patient is more awake and alert today. He still has periods of confusion. His family is present at the bedside. OBJECTIVE: Vital Signs: Temperature 97.9 degrees, blood pressure 149/71, heart rate 81, respirations 16, O2 saturation is 99% on room air. General: This is a chronically ill-appearing elderly male, lying in bed in no acute distress. Heart: S1, S2 normal. Regular rate and rhythm. Lungs: Equal air entry bilaterally. No crackles. No rales. Abdomen: Positive bowel sounds. Soft, nontender, nondistended. Extremities: No edema, no cyanosis. Neurologic: The patient is alert and oriented. He is able to move all 4 extremities. DIAGNOSTIC STUDIES: White blood cell count 6, hemoglobin 12, hematocrit 35, platelets 177,000. Sodium 138, potassium 4.1, BUN 23, creatinine 1.1, glucose 113. MRI of the brain showed subacute infarcts involving the thalamus bilaterally, as well as the left cerebral peduncle. ASSESSMENT AND PLAN: 1. Subacute infarcts of the thalamus. The patient is already on aspirin. We will start Lipitor. Continue with physical therapy and occupational therapy. 2. Vitamin D deficiency. Continue with vitamin D replacement. 3. Acute kidney injury. Resolved. 4. Protein-calorie malnutrition. The patient's appetite has picked up. Continue on Megace. 5. Deep vein thrombosis (DVT) prophylaxis. Continue on Lovenox. DISPOSITION: [facility] is working on inpatient rehabilitation placement. cc: Radha José MD
[2018-07-11] MEDS: SYSTANE EYE DROPS BOTH EYES SCH ×2 (06:59→18:30)
[2018-07-11] MEDS: PRILOSEC PO SCH ×2 (06:59→07:01)
[2018-07-11] MEDS: HUMULIN R SUBQ SCH ×4 (06:59→20:06)
[2018-07-11] MEDS: SODIUM BICARBONATE PO SCH ×2 (08:20→20:13)
[2018-07-11] MEDS: GLUCOSAMINE 500 MG/CHONDROITIN 400 MG PO SCH (08:20)
[2018-07-11] MEDS: FISH OIL CONCENTRATE PO SCH (08:20)
[2018-07-11] MEDS: VITAMIN C PO SCH (08:20)
[2018-07-11] MEDS: MEGACE LIQUID PO SCH ×2 (08:20→20:12)
[2018-07-11] MEDS: ASPIRIN EC PO SCH (08:20)
[2018-07-11] MEDS: ISOPTIN SR PO SCH (08:20)
[2018-07-11] MEDS: COENZYME Q10 PO SCH (08:20)
[2018-07-11] MEDS: CALTRATE 600 + D PO SCH (08:21)
[2018-07-11] MEDS: FOLIC ACID PO SCH (08:21)
[2018-07-11 08:31] LABS: AGAP 11; BUN 24 mg/dL (8-22); CALCIUM 8.5 mg/dL (8.8-10.2); CHLORIDE 105 mmol/L (98-107); COSMO 280; CREATININE 1.1 mg/dL (0.7-1.2); ESTIMATED GFR > 60; GLUCOSE 134 mg/dL (70-104); POTASSIUM 3.7 mmol/L (3.5-5.1); SODIUM 137 mmol/L (136-145); TCO2 21 mmol/L (25-35)
[2018-07-11] MEDS ORDERED: VITAMIN B-12 PO SCH (09:00)
[2018-07-11] MEDS: CLINIMIX E 4.25%-5% SOLUTION 1,000 ML IV SCH ×2 (12:01→22:19)
--- NOTE | 2018-07-11 12:19 | PROGRESS NOTE ---
DATE: 07/11/2018 SUBJECTIVE: Mr. Briscoe is supine and mostly attentive. He reports no headache and no specific problems. Brain MRI shows evidence of thalamic infarction bilaterally with the lesion in the left thalamus extending into the left cerebral peduncle. There is restricted diffusion with each thalamic lesion, but these areas were not apparent on the ADC images. MRA of the brain was unremarkable. Recent systolic blood pressures have ranged 110s to 160s. OBJECTIVE: On my exam, he is awake, alert, mostly attentive. He has left ptosis and restricted left extraocular movement. I believe there is good left lateral rectus function, but I do not see good elevation, depression, or medial movement of the left eye. Right extraocular movement is full. Right pupil reacts minimally to light. I could not see direct or consensual light reaction with the left pupil. He is able to count fingers with the left eye. He used his limbs well. He did well on [id number] testing bilaterally. [employer] strength is equal. I did not test his gait. IMPRESSION: 1. Imaging evidence of subacute subcortical infarctions, vertebrobasilar/posterior cerebral distribution. 2. Possible left 3rd nerve findings which could be related to left midbrain involvement or direct ischemic 3rd nerve injury where it passes adjacent to the peduncle. Alternatively, the cranial nerve findings noted today may be old and may not be related to the recent infarction. 3. Baseline cognitive impairment. If not previously tried, cholinesterase inhibitor trial would be reasonable electively, not urgent. 4. Some of his encephalopathic features on presentation may be attributed to toxic/metabolic exacerbation of his baseline cognitive impairment. BUN was slightly elevated and is closer to baseline now. He has had some fairly modest blood sugar elevations. I do not see any obvious metabolic problems sufficient to alter his mental state at this time. 5. Review of hospital chart shows reported past history of Crohn's disease. I do not know how he was managing Crohn's. This would raise some concern for vasculitis, but I do not see any other evidence of vasculitis. We might consider CT angiogram electively, not urgent. His baseline cognitive status is a relative contraindication to aggressive intervention. Creatinine had been 1.9 earlier, but down to 1.1 today, so, if more aggressive management is undertaken, CT angiogram can be considered. No urgent suggestions. Thanks for asking Neurology to see Mr. Briscoe. cc: Alexi Paz III, MD MTDD
--- NOTE | 2018-07-11 16:44 | PROGRESS NOTE ---
DATE: 07/11/2018 SUBJECTIVE: The patient is resting comfortably in bed. No acute events noted overnight. OBJECTIVE: Vital Signs: Temperature 98.1 degrees, blood pressure 105/60, heart rate 63, respirations 15, O2 saturation is 96% on room air. General: This is an elderly male lying in bed, in no acute distress. Heart: S1, S2 normal. Regular rate and rhythm. Lungs: Equal air entry bilaterally. No wheezing. No rales. No rhonchi. Abdomen: Positive bowel sounds. Soft, nontender, nondistended. Extremities: No edema. No cyanosis. Neurologic: The patient is alert and oriented. LABS: Sodium 137, potassium 3.7, chloride 105, CO2 21, BUN 24, creatinine 1.1, glucose 134. ASSESSMENT AND PLAN: 1. Subacute infarcts involving the thalamus bilaterally. Continue on aspirin and Lipitor, as well as physical therapy. 2. Acute kidney injury. Resolved. 3. Protein calorie malnutrition. Continue with meal supplements. 4. Vitamin D deficiency. Continue with vitamin D replacement. 5. Hypertension. Stable. 6. Deep vein thrombosis prophylaxis. Continue on Lovenox. 7. Disposition. The patient will be discharged to inpatient rehab once a bed is available. cc: Radha José MD
[2018-07-11] MEDS: LOVENOX SUBQ SCH (20:06)
[2018-07-11] MEDS: LIPITOR PO SCH (20:13)
[2018-07-12] MEDS: SYSTANE EYE DROPS BOTH EYES SCH ×2 (06:48→17:06)
[2018-07-12] MEDS: HUMULIN R SUBQ SCH ×4 (06:48→21:51)
[2018-07-12] MEDS: PRILOSEC PO SCH (06:48)
[2018-07-12 07:32] LABS: CALCIUM 8.7 mg/dL (8.8-10.2); CREATININE 1.2 mg/dL (0.7-1.2); POTASSIUM 4.1 mmol/L (3.5-5.1)
[2018-07-12] MEDS: COENZYME Q10 PO SCH (08:27)
[2018-07-12] MEDS: MEGACE LIQUID PO SCH ×2 (08:27→21:52)
[2018-07-12] MEDS: ISOPTIN SR PO SCH (08:27)
[2018-07-12] MEDS: FOLIC ACID PO SCH (08:27)
[2018-07-12] MEDS: VITAMIN C PO SCH (08:27)
[2018-07-12] MEDS: CALTRATE 600 + D PO SCH (08:28)
[2018-07-12] MEDS: SODIUM BICARBONATE PO SCH ×2 (08:28→21:52)
[2018-07-12] MEDS: ASPIRIN EC PO SCH (08:28)
[2018-07-12] MEDS: FISH OIL CONCENTRATE PO SCH (08:28)
[2018-07-12] MEDS: GLUCOSAMINE 500 MG/CHONDROITIN 400 MG PO SCH (08:28)
--- NOTE | 2018-07-12 10:48 | PROGRESS NOTE ---
DATE: 07/12/2018 SUBJECTIVE: Mr. Briscoe has not had any major neurologic changes noted over the last day or two. OBJECTIVE: He is awake and alert. He is a little bit brighter and more attentive today. Speech is easier to understand today. He continues with left ptosis and left eye does not move medially or vertically. He has good left lateral rectus function. He has good vision in the left eye, and full mayen on gross confrontational finger testing monocularly for the left eye. He had some difficulty with [id number]-[id number] testing bilaterally, past-pointing with the right a little bit more than the left. He did not maintain effort throughout with motor exam, but seems to have very slight left hemiparesis. Neck is supple. I do not have any new thoughts or new suggestions. He seems to be stable and making some recovery from recent thalamic infarctions. As stated yesterday, his baseline cognitive impairment makes aggressive intervention unnecessary. Would continue current management. Thanks for asking Neurology to see Mr. Briscoe. cc: MD RAAD Sarkar III
[2018-07-12] MEDS: CLINIMIX E 4.25%-5% SOLUTION 1,000 ML IV SCH (12:10)
--- NOTE | 2018-07-12 15:31 | PROGRESS NOTE ---
DATE: 07/12/2018 SUBJECTIVE: The patient is resting comfortably. No acute events noted overnight. OBJECTIVE: Vital signs show temperature 98.4 degrees, blood pressure 123/62, heart rate 88, respirations 20, and O2 saturation 98% on room air. General: This is a chronically ill-appearing elderly male lying in bed in no acute distress. Heart: S1, S2 normal. Abdomen: Positive bowel sounds. Soft, nontender, and nondistended. Extremities: No edema. No cyanosis. Neurologic: The patient is sleepy, but will awaken when his name is called. LABORATORY: Sodium 132, potassium 4.1, chloride 101, CO2 20, BUN 32, creatinine 1.2, and glucose 139. ASSESSMENT AND PLAN: 1. Subacute infarcts involving the thalamus. Continue on aspirin and Lipitor. Continue with physical therapy. 2. Acute kidney injury. Stable. 3. Vitamin D deficiency. Continue on vitamin D replacement. 4. Hypertension. Stable. 5. Deep vein thrombosis prophylaxis. Continue on Lovenox. 6. Disposition: The patient will be discharged to inpatient rehab once approval has been obtained. Continue with physical therapy. cc: Radha José MD MTDD
[2018-07-12] MEDS: LOVENOX SUBQ SCH (21:51)
[2018-07-12] MEDS: DULCOLAX PR SCH (21:51)
[2018-07-12] MEDS: LIPITOR PO SCH (21:52)
[2018-07-13] MEDS: HUMULIN R SUBQ SCH ×4 (05:56→22:46)
[2018-07-13] MEDS: PRILOSEC PO SCH (06:49)
[2018-07-13] MEDS: SYSTANE EYE DROPS BOTH EYES SCH ×2 (06:49→17:08)
[2018-07-13 07:04] LABS: HEMATOCRIT 32.7 % (42.0-52.0); HEMOGLOBIN 11.1 g/dL (14.0-18.0); MCH 30.9 PG (27-31); MCHC 33.9 g/dL (33-37); MCV 91.1 FL (81-99); RBC 3.59 XMIL (4.7-6.1); RDW 12.7 % (11.5-14.5); WBC 9.16 X1000 (4.8-10.8)
[2018-07-13 07:29] LABS: CALCIUM 8.9 mg/dL (8.8-10.2); CREATININE 1.4 mg/dL (0.7-1.2); POTASSIUM 4.2 mmol/L (3.5-5.1)
[2018-07-13] MEDS: COENZYME Q10 PO SCH (08:49)
[2018-07-13] MEDS: FOLIC ACID PO SCH (08:49)
[2018-07-13] MEDS: ISOPTIN SR PO SCH (08:49)
[2018-07-13] MEDS: ASPIRIN EC PO SCH (08:50)
[2018-07-13] MEDS: GLUCOSAMINE 500 MG/CHONDROITIN 400 MG PO SCH (08:50)
[2018-07-13] MEDS: MEGACE LIQUID PO SCH ×2 (08:50→21:12)
[2018-07-13] MEDS: CALTRATE 600 + D PO SCH (08:50)
[2018-07-13] MEDS: VITAMIN C PO SCH (08:50)
[2018-07-13] MEDS: SODIUM BICARBONATE PO SCH ×2 (08:50→21:12)
[2018-07-13] MEDS: FISH OIL CONCENTRATE PO SCH (08:50)
[2018-07-13] MEDS: NS 1,000 ML IV SCH ×2 (08:51→21:13)
[2018-07-13] MEDS: LIPITOR PO SCH (21:12)
[2018-07-13] MEDS: DULCOLAX PR SCH (21:12)
[2018-07-13] MEDS: LOVENOX SUBQ SCH (21:12)
[2018-07-13] MEDS ORDERED: GEODON IM ONE (21:57)
[2018-07-13] MEDS ORDERED: STERILE WATER INJ. INJ ONE (21:57)
[2018-07-14] MEDS: NS 1,000 ML IV SCH ×2 (00:27→17:00)
[2018-07-14] MEDS: SYSTANE EYE DROPS BOTH EYES SCH ×2 (05:38→17:05)
[2018-07-14] MEDS: PRILOSEC PO SCH (06:10)
[2018-07-14] MEDS: HUMULIN R SUBQ SCH ×5 (06:12→21:44)
[2018-07-14 07:49] LABS: BASO# 0.01 X1000 (0.0-0.2); BASO% 0.1 % (0.0-0.8); EOS# 0.16 X1000 (0.0-0.7); EOS% 1.9 % (0.0-10.0); HEMATOCRIT 32.3 % (42.0-52.0); HEMOGLOBIN 10.6 g/dL (14.0-18.0); IMM GRAN# 0.03 X1000 (0.0-0.04); IMM GRAN% 0.3 % (0.0-0.5); LYMPH# 0.99 X1000 (1.2-3.4); LYMPH% 11.5 % (20.5-51.1); MCH 29.9 PG (27-31); MCHC 32.8 g/dL (33-37); MCV 91.2 FL (81-99); MONO# 1.16 X1000 (0.11-0.59); MONO% 13.4 % (1.7-9.3); MPV 10.8 FL (7.4-10.4); NEUT# 6.28 X1000 (1.4-6.5); NEUT% 72.8 % (42.2-75.2); PLT 216 X1000 (130-400); RBC 3.54 XMIL (4.7-6.1); RDW 12.6 % (11.5-14.5); WBC 8.63 X1000 (4.8-10.8)
[2018-07-14 08:22] LABS: CALCIUM 8.7 mg/dL (8.8-10.2); CREATININE 1.3 mg/dL (0.7-1.2); POTASSIUM 4.1 mmol/L (3.5-5.1)
[2018-07-14] MEDS: SODIUM BICARBONATE PO SCH ×2 (09:39→21:26)
[2018-07-14] MEDS: COENZYME Q10 PO SCH (09:39)
[2018-07-14] MEDS: VITAMIN C PO SCH (09:40)
[2018-07-14] MEDS: CALTRATE 600 + D PO SCH (09:40)
[2018-07-14] MEDS: ASPIRIN EC PO SCH (09:40)
[2018-07-14] MEDS: FOLIC ACID PO SCH (09:40)
[2018-07-14] MEDS: MEGACE LIQUID PO SCH ×3 (09:40→21:45)
[2018-07-14] MEDS: GLUCOSAMINE 500 MG/CHONDROITIN 400 MG PO SCH (09:40)
[2018-07-14] MEDS: FISH OIL CONCENTRATE PO SCH (09:40)
[2018-07-14] MEDS: ISOPTIN SR PO SCH (09:43)
[2018-07-14] MEDS ORDERED: GEODON IM ONE (16:24)
[2018-07-14] MEDS ORDERED: STERILE WATER INJ. INJ ONE (16:24)
[2018-07-14] MEDS ORDERED: STERILE WATER INJ. ONE (16:56)
--- NOTE | 2018-07-14 18:16 | PROGRESS NOTE ---
DATE: 07/14/2018 SUBJECTIVE: The patient was very agitated overnight and was noted to be agitated this afternoon as well. OBJECTIVE: Vital Signs: Temperature 98 degrees, blood pressure 123/59, heart rate 63, respirations 20, O2 saturation 95% on room air. General: This is a chronically ill-appearing elderly male lying in bed in no acute distress. Heart: S1, S2 normal. Regular rate and rhythm. Lungs: Clear to auscultation bilaterally. No wheezing. No rales. No rhonchi. Abdomen: Positive bowel sounds. Soft, nontender, nondistended. Extremities: No edema. No cyanosis. Neurologic: The patient is awake and confused and agitated. LABORATORY DATA: Sodium 137, potassium 4.1, chloride 105, CO2 of 22, BUN 31, creatinine 1.3, glucose 147. ASSESSMENT AND PLAN: 1. Subacute cerebrovascular accident involving the thalamus. Continue on aspirin and Lipitor. 2. Dementia with behavioral disturbance. Aware. 3. Acute kidney injury. Slightly improved. Continue with IV fluid. 4. Vitamin D deficiency. Continue on vitamin D replacement. 5. Hypertension. Stable. 6. Deep vein thrombosis prophylaxis. Continue on Lovenox. 7. Disposition. The patient will be discharged to inpatient rehab once a bed is available. Continue with physical therapy. cc: Radha José MD
[2018-07-14] MEDS: LIPITOR PO SCH (21:26)
[2018-07-14] MEDS: DULCOLAX PR SCH ×2 (21:26→21:46)
[2018-07-14] MEDS: LOVENOX SUBQ SCH ×2 (21:26→21:45)
[2018-07-15] MEDS: NS 1,000 ML IV SCH ×2 (06:37→18:51)
[2018-07-15] MEDS: PRILOSEC PO SCH (06:42)
[2018-07-15] MEDS: SYSTANE EYE DROPS BOTH EYES SCH ×2 (06:42→19:36)
[2018-07-15] MEDS: HUMULIN R SUBQ SCH ×4 (06:42→21:17)
[2018-07-15 08:26] LABS: BASO# 0.02 X1000 (0.0-0.2); BASO% 0.3 % (0.0-0.8); EOS# 0.16 X1000 (0.0-0.7); EOS% 2.1 % (0.0-10.0); HEMATOCRIT 37.4 % (42.0-52.0); HEMOGLOBIN 12.4 g/dL (14.0-18.0); IMM GRAN# 0.02 X1000 (0.0-0.04); IMM GRAN% 0.3 % (0.0-0.5); LYMPH# 0.96 X1000 (1.2-3.4); LYMPH% 12.6 % (20.5-51.1); MCH 30.5 PG (27-31); MCHC 33.2 g/dL (33-37); MCV 91.9 FL (81-99); MONO# 0.76 X1000 (0.11-0.59); MPV 11.1 FL (7.4-10.4); NEUT% 74.7 % (42.2-75.2); PLT 231 X1000 (130-400); RBC 4.07 XMIL (4.7-6.1); RDW 12.4 % (11.5-14.5); WBC 7.62 X1000 (4.8-10.8)
[2018-07-15 08:37] LABS: CALCIUM 9.1 mg/dL (8.8-10.2); CREATININE 1.3 mg/dL (0.7-1.2); POTASSIUM 4.2 mmol/L (3.5-5.1)
[2018-07-15] MEDS: MEGACE LIQUID PO SCH ×2 (10:05→21:16)
[2018-07-15] MEDS: ISOPTIN SR PO SCH (10:05)
[2018-07-15] MEDS: SODIUM BICARBONATE PO SCH ×2 (10:06→21:16)
[2018-07-15] MEDS: VITAMIN C PO SCH (10:06)
[2018-07-15] MEDS: CALTRATE 600 + D PO SCH (10:06)
[2018-07-15] MEDS: FOLIC ACID PO SCH (10:07)
[2018-07-15] MEDS: ASPIRIN EC PO SCH (10:07)
[2018-07-15] MEDS: FISH OIL CONCENTRATE PO SCH (10:07)
[2018-07-15] MEDS: GLUCOSAMINE 500 MG/CHONDROITIN 400 MG PO SCH (10:07)
[2018-07-15] MEDS: COENZYME Q10 PO SCH (10:07)
--- NOTE | 2018-07-15 15:13 | PROGRESS NOTE ---
DATE: 07/15/2018 SUBJECTIVE: No major overnight events. OBJECTIVE: He is afebrile. Blood pressure 147/82, pulse 94, respirations 18, saturation 98% on room air. Mr. Briscoe is supine in bed with eyes closed. He appears to be asleep when I enter the room. He is easily awakened and regards. He typically keeps his left eye closed. He is more cooperative than when I saw him initially. He does have left-sided ptosis. His ocular movements are full in the right eye. On the left eye, he has good leftward lateral eye movement, but otherwise I do not see definite movement. Pupil there is about 3 and a half mm and I do not see definite reactivity. On the right, it is 3 and a half mm and reactive. Face is symmetric, otherwise with equal activation. I do not detect definite focal weakness of the extremities on exam today. ASSESSMENT AND PLAN: 1. Recent bilateral thalamic infarcts with the left side extending into the cerebral peduncle. 2. Ocular findings likely related to #1 3. Likely baseline cognitive impairment syndrome. He seems to be stable from a neurologic standpoint. I would continue with secondary stroke prevention measures as you are doing. I understand he has had some periods of agitation and this may be related to the mild toxic metabolic abnormalities superimposed upon a cognitive impairment syndrome. I would continue with frequent reorienting while he is here. cc: Lexie Guidry MD MTDD
[2018-07-15] MEDS: LOVENOX SUBQ SCH (21:16)
[2018-07-15] MEDS: DULCOLAX PR SCH (21:16)
[2018-07-15] MEDS: LIPITOR PO SCH (21:16)
[2018-07-15] MEDS: REMERON PO SCH (21:19)
--- NOTE | 2018-07-16 04:03 | PROGRESS NOTE ---
DATE: 07/15/2018 SUBJECTIVE: The patient is resting comfortably in bed. No acute events noted overnight. He is in wrist restraints. OBJECTIVE: Vital Signs: Temperature 97.8 degrees, blood pressure 130/66, heart rate 90, respirations 18, O2 saturation 97% on room air. General: This is an elderly male, lying in bed in no acute distress. Heart: S1, S2 normal, regular rate and rhythm. Lungs: Clear to auscultation bilaterally. No wheezing. No rales. No rhonchi. Abdomen: Positive bowel sounds. Soft, nontender, nondistended. Extremities: No edema, no cyanosis. Neurologic: The patient is awake and alert. LABORATORY DATA: Sodium 140, potassium 4.2, chloride 106, CO2 of 22, BUN 27, creatinine 1.3, glucose 121. White blood cell count 7.6. ASSESSMENT AND PLAN: 1. Subacute cerebrovascular accident (CVA) involving the thalamus. Continue on aspirin and Lipitor. 2. Acute kidney injury. Slightly improved. Continue with IV fluid. 3. Hypertension. Stable. 4. Vitamin D deficiency. Continue with vitamin D replacement. 5. Deep vein thrombosis (DVT) prophylaxis. Continue on Lovenox. DISPOSITION: The patient will be discharged to inpatient rehabilitation once a bed is available. Continue with physical therapy. cc: Radha José MD
[2018-07-16] MEDS: SYSTANE EYE DROPS BOTH EYES SCH ×2 (05:47→20:50)
[2018-07-16] MEDS: PRILOSEC PO SCH ×2 (05:48→06:01)
[2018-07-16] MEDS: HUMULIN R SUBQ SCH ×4 (06:01→20:50)
[2018-07-16 08:15] LABS: CALCIUM 8.6 mg/dL (8.8-10.2); CREATININE 1.2 mg/dL (0.7-1.2); POTASSIUM 4.1 mmol/L (3.5-5.1)
[2018-07-16] MEDS: NS 1,000 ML IV SCH ×2 (08:19→22:41)
[2018-07-16] MEDS: ISOPTIN SR PO SCH (10:11)
[2018-07-16] MEDS: MEGACE LIQUID PO SCH ×2 (10:11→20:49)
[2018-07-16] MEDS: ASPIRIN EC PO SCH (10:11)
[2018-07-16] MEDS: FISH OIL CONCENTRATE PO SCH (10:12)
[2018-07-16] MEDS: COENZYME Q10 PO SCH (10:12)
[2018-07-16] MEDS: SODIUM BICARBONATE PO SCH ×2 (10:12→20:50)
[2018-07-16] MEDS: VITAMIN C PO SCH (10:12)
[2018-07-16] MEDS: GLUCOSAMINE 500 MG/CHONDROITIN 400 MG PO SCH (10:12)
[2018-07-16] MEDS: CALTRATE 600 + D PO SCH (10:19)
[2018-07-16] MEDS: FOLIC ACID PO SCH (10:22)
--- NOTE | 2018-07-16 18:14 | PROGRESS NOTE ---
DATE: 07/16/2018 SUBJECTIVE: Patient resting in bed. Seems to be difficult to arouse. OBJECTIVE: Vital signs: Temperature 97.3 degrees, pulse 64, respiratory 18, blood pressure 116/66, oxygen saturation 100%. HEENT: Atraumatic, normocephalic. Cardiovascular: S1, S2. Respiratory: Has evidence of good entry bilaterally. Abdomen: Soft, nontender, no masses felt. Extremities: No evidence of edema. CENTRAL NERVOUS SYSTEM: Could not be adequately assessed as patient is difficult to arouse. LABORATORY DATA: Sodium 140, potassium 4.1, chloride is 107, bicarb 22, BUN 25, creatinine 1.2. ASSESSMENT AND PLAN: 1. Subacute cerebrovascular accident. Continue supportive care. Maintain patient on statin as well as aspirin. Continue physical therapy. 2. Acute kidney injury. Maintain patient intravenous fluids, follow up on renal function. 3. Hypertension. Allow for permissive hypertension. 4. Vitamin D deficiency. Continue vitamin D replacement. 5. Deep vein thrombosis prophylaxis Lovenox. 6. Disposition. Patient can be discharged to rehab facility once bed is available. cc: Pavel Gutierrez MD
[2018-07-16] MEDS: REMERON PO SCH (20:49)
[2018-07-16] MEDS: LOVENOX SUBQ SCH (20:49)
[2018-07-16] MEDS: LIPITOR PO SCH (20:49)
[2018-07-16] MEDS: DULCOLAX PR SCH (20:50)
[2018-07-17] MEDS: SYSTANE EYE DROPS BOTH EYES SCH ×2 (05:58→17:30)
[2018-07-17] MEDS: PRILOSEC PO SCH (05:59)
[2018-07-17] MEDS: HUMULIN R SUBQ SCH ×4 (05:59→23:08)
[2018-07-17] MEDS: MEGACE LIQUID PO SCH ×2 (10:04→22:42)
[2018-07-17] MEDS: GLUCOSAMINE 500 MG/CHONDROITIN 400 MG PO SCH (10:05)
[2018-07-17] MEDS: ISOPTIN SR PO SCH (10:05)
[2018-07-17] MEDS: ASPIRIN EC PO SCH (10:05)
[2018-07-17] MEDS: VITAMIN C PO SCH (10:05)
[2018-07-17] MEDS: VITAMIN D PO SCH (10:05)
[2018-07-17] MEDS: SODIUM BICARBONATE PO SCH ×2 (10:06→22:43)
[2018-07-17] MEDS: CALTRATE 600 + D PO SCH (10:06)
[2018-07-17] MEDS: FOLIC ACID PO SCH (10:13)
[2018-07-17] MEDS: NS 1,000 ML IV SCH ×2 (10:22→23:28)
[2018-07-17] MEDS: COENZYME Q10 PO SCH (10:22)
[2018-07-17] MEDS: FISH OIL CONCENTRATE PO SCH (10:22)
--- NOTE | 2018-07-17 12:36 | PROGRESS NOTE ---
DATE: 07/17/2018 SUBJECTIVE: Patient resting in bed. Sensorium seems to be slightly better today. OBJECTIVE: Vital Signs: Temperature 97.5 degrees, pulse 72, respiratory rate 19, blood pressure 148/73, and oxygen saturation is 97%. HEENT: Patient is atraumatic and normocephalic. Cardiovascular: S1, S2. Respiratory: Evidence of good air entry bilaterally. Abdomen: Soft, nontender. No masses felt. Extremities: No evidence of edema. Central nervous system: Patient does not have any significant focal deficits noted. LABORATORY DATA: None today. ASSESSMENT AND PLAN: 1. Subacute cerebrovascular accident. We will maintain patient on aspirin as well as statin. Continue PT/OT evaluation. I have also requested a carotid Doppler study. 2D echo of the heart. Speech Therapy as well as a swallow evaluation as part of the stroke workup. We will also get a hemoglobin A1c and also a lipid panel. 2. Acute kidney injury. Maintain patient on intravenous fluids. Follow up on renal function. 3. Hypertension . continue current regimen 4. Vitamin D deficiency. Continue vitamin D replacement. 5. Deep vein thrombosis prophylaxis on Lovenox. 6. Gastrointestinal prophylaxis on proton pump inhibitor. 7. Disposition: The patient has a bed at [facility], and will plan for discharge tomorrow after reviewing studies which I have ordered today. cc: Pavel Gutierrez MD [facility]
[2018-07-17] MEDS ORDERED: MIRALAX PO ONE (13:25)
--- NOTE | 2018-07-17 14:37 | PROGRESS NOTE ---
DATE: 07/17/2018 LOCATION: Room 325B. SUBJECTIVE: Mr. Briscoe reports no headache. OBJECTIVE: Mr. Briscoe was initially asleep, easily waked, alert and attentive during my time at the bedside. Speech is a little bit feeble, but not consistently dysarthric. 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 Neck is supple. IMPRESSION: Bilateral thalamic infarction, cerebral peduncle involved on the left, stable clinically. In light of his baseline significant cognitive impairment, he is not a candidate for aggressive intervention. I do not have any new suggestion from Neurology standpoint. Thank you for asking us to see Mr. Briscoe. cc: Alexi Paz III, MD [facility]
[2018-07-17] MEDS: DULCOLAX PR SCH (22:42)
[2018-07-17] MEDS: LIPITOR PO SCH (22:43)
[2018-07-17] MEDS: REMERON PO SCH (22:43)
[2018-07-17] MEDS: LOVENOX SUBQ SCH (22:43)
[2018-07-18] MEDS: TYLENOL PO PRN (03:33)
[2018-07-18] MEDS: SYSTANE EYE DROPS BOTH EYES SCH ×2 (06:08→17:08)
[2018-07-18] MEDS: PRILOSEC PO SCH (06:08)
[2018-07-18] MEDS: HUMULIN R SUBQ SCH ×4 (06:09→21:46)
[2018-07-18 08:15] LABS: CHOLESTEROL 63 mg/dL (0-200); HDL 25 mg/dL (35-55); LDL 30 mg/dL; TRIGLYCERIDES 41 mg/dL (39-160); VLDL 8 mg/dL
[2018-07-18 08:20] LABS: HEMOGLOBIN A1C 5.5 % (4.8-6.0)
[2018-07-18] MEDS: ASPIRIN EC PO SCH (10:25)
[2018-07-18] MEDS: CALTRATE 600 + D PO SCH (10:25)
[2018-07-18] MEDS: FISH OIL CONCENTRATE PO SCH (10:25)
[2018-07-18] MEDS: SODIUM BICARBONATE PO SCH ×2 (10:25→21:48)
[2018-07-18] MEDS: COENZYME Q10 PO SCH (10:25)
[2018-07-18] MEDS: FOLIC ACID PO SCH (10:25)
[2018-07-18] MEDS: MEGACE LIQUID PO SCH ×2 (10:25→21:48)
[2018-07-18] MEDS: GLUCOSAMINE 500 MG/CHONDROITIN 400 MG PO SCH (10:25)
[2018-07-18] MEDS: VITAMIN C PO SCH (10:27)
[2018-07-18] MEDS: NS 1,000 ML IV SCH (13:09)
[2018-07-18] MEDS ORDERED: KLONOPIN PO PRN (13:52)
--- NOTE | 2018-07-18 14:34 | DISCHARGE SUMMARY ---
ADMISSION DATE: 07/07/2018 DISCHARGE DATE: 07/19/2018 PRINCIPAL DIAGNOSIS: Subacute cerebrovascular accident. SECONDARY DIAGNOSES: 1. Acute kidney injury. 2. Hypertension. 3. Vitamin D deficiency. 4. Type 2 diabetes mellitus. 5. History of prostate cancer status post prostatectomy. 6. History of Crohn's disease. 7. History of mitral valve prolapse. 8. Gastroesophageal reflux disease. 9. History of interstitial cystitis. DISCHARGE MEDICATIONS: Include the followin. Atorvastatin 40 mg p.o. daily. 2. Mirtazapine 15 mg p.o. at bedtime. 3. Klonopin 1 mg p.o. twice a day as needed. 4. Bisacodyl 10 mg rectally at bedtime. 5. Vitamin D 76317 units every 7 days. 6. Verapamil 240 mg p.o. daily. 7. Folic Acid 0.4 mg p.o. daily. 8. Ascorbic acid 500 mg p.o. daily. 9. Glucosamine chondroitin 1 p.o. daily. 10. Hermann 3 fatty acid 1 daily. 11. CoQ 10 400 mg p.o. daily. 12. Calcium with magnesium and zinc 1 p.o. daily. 13. Aspirin 81 mg p.o. daily. 14. Nexium 40 mg p.o. daily. PROCEDURES DURING HOSPITAL STAY: 1. Brain MRI 07/09/2018. 2. Brain MRA 07/09/2018. 3. Head CT 07/07/2018. CONSULTATIONS DURING HOSPITAL STAY: Lexie Guidry MD Neurology. HOSPITAL COURSE: Mr. Ruddy Briscoe is a 53-year-old male who has a history of diabetes mellitus type 2, hypertension, prostate cancer, status post prostatectomy, Crohn's disease, mitral valve prolapse, gastroesophageal reflux disease as well as interstitial cystitis. He was brought into the hospital because of altered mental status. The patient was found based on MRI to have subacute infarcts involving the thalamus bilaterally as well as the left cerebral peduncle. The patient was managed accordingly for stroke. He was maintained on aspirin and placed on statin. We did recommend physical therapy as well as outpatient therapy, and also speech therapy/swallow evaluation. The patient was seen by the Neurology team. During the course of the hospital stay, the patient required physical restraints which has now been taken off. He is currently on antipsychotic for agitation. At this time, he has done well. He is stable. He can now be discharged to rehab facility. During my evaluation today, the patient was resting comfortably in bed. He was not agitated. The patient was being fed by the deputy director of nursing. DISCHARGE EXAMINATION: Vital Signs: His vital signs were as follows: Temperature 97.3 degrees, pulse 78, respiratory 16, blood pressure 142/70, and oxygen saturation is 100%. HEENT: Atraumatic. Normocephalic. Cardiovascular: S1, S2. Respiratory: There is evidence of good air entry bilaterally. Abdomen: Soft, nontender. No masses felt. Extremities: No evidence of edema. Central nervous system: No obvious focal deficit noted. LABORATORY DATA: Blood sugar level is 113, hemoglobin A1c level is 5.5. Triglycerides 41, cholesterol 63, LDL 30. HDL 25 and VLDL is 8. PLAN: Discharge to residential facility today. The patient will require PT/OT evaluation as well as he is expected to take his discharge medications as noted above. He will need to follow up with his primary care physician as well as Neurology in the outpatient. Will use antipsychotic for agitation if needed. Addendum. Patient discharged home with hospice. cc: Pavel Gutierrez MD [facility]
[2018-07-18] MEDS: LOVENOX SUBQ SCH (21:47)
[2018-07-18] MEDS: LIPITOR PO SCH (21:48)
[2018-07-18] MEDS: DULCOLAX PR SCH (21:48)
[2018-07-18] MEDS: REMERON PO SCH (21:48)
[2018-07-18] MEDS: HALDOL PO SCH (21:49)
[2018-07-19] MEDS: NS 1,000 ML IV SCH (06:24)
[2018-07-19] MEDS: SYSTANE EYE DROPS BOTH EYES SCH ×2 (06:24→17:04)
[2018-07-19] MEDS: PRILOSEC PO SCH (06:24)
[2018-07-19] MEDS: HUMULIN R SUBQ SCH ×3 (06:30→17:04)
[2018-07-19 07:38] LABS: BASO# 0.05 X1000 (0.0-0.2); BASO% 0.6 % (0.0-0.8); EOS# 0.22 X1000 (0.0-0.7); EOS% 2.5 % (0.0-10.0); HEMATOCRIT 34.6 % (42.0-52.0); HEMOGLOBIN 11.1 g/dL (14.0-18.0); IMM GRAN# 0.07 X1000 (0.0-0.04); IMM GRAN% 0.8 % (0.0-0.5); LYMPH# 1.57 X1000 (1.2-3.4); LYMPH% 17.8 % (20.5-51.1); MCH 29.8 PG (27-31); MCHC 32.1 g/dL (33-37); MONO# 0.82 X1000 (0.11-0.59); MONO% 9.3 % (1.7-9.3); NEUT# 6.09 X1000 (1.4-6.5); PLT 248 X1000 (130-400); RBC 3.72 XMIL (4.7-6.1); RDW 12.6 % (11.5-14.5); WBC 8.82 X1000 (4.8-10.8)
[2018-07-19 08:01] LABS: ALB/GLOB RATIO 0.9; ALBUMIN 2.5 g/dL (3.5-5.0); CALCIUM 7.9 mg/dL (8.8-10.2); CREATININE 1.4 mg/dL (0.7-1.2); POTASSIUM 4.1 mmol/L (3.5-5.1); TOTAL BILIRUBIN 0.35 mg/dL (0.20-1.00); TOTAL PROTEIN 5.3 g/dL (6.3-8.3)
[2018-07-19] MEDS: HALDOL PO SCH (10:17)
[2018-07-19] MEDS: FOLIC ACID PO SCH (10:17)
[2018-07-19] MEDS: GLUCOSAMINE 500 MG/CHONDROITIN 400 MG PO SCH (10:17)
[2018-07-19] MEDS: ASPIRIN EC PO SCH (10:17)
[2018-07-19] MEDS: COENZYME Q10 PO SCH (10:17)
[2018-07-19] MEDS: SODIUM BICARBONATE PO SCH (10:17)
[2018-07-19] MEDS: VITAMIN C PO SCH (10:17)
[2018-07-19] MEDS: FISH OIL CONCENTRATE PO SCH (10:17)
[2018-07-19] MEDS: CALTRATE 600 + D PO SCH (10:18)
[2018-07-19] MEDS: MEGACE LIQUID PO SCH (10:18)
--- NOTE | 2018-07-19 13:04 | Carotid Study ---
DATE: 07/17/2018 PROCEDURE: Carotid duplex imaging. REFERRING PHYSICIAN: Dr. Gutierrez INTERPRETING PHYSICIAN: Dr. Christensen TECH: [place] INDICATIONS: CVA. OBSERVED DATA RIGHT LEFT Brachial Blood Pressure Carotid Pulse Bruits: Carotid/Sub DIAGRAM OF ULTRASOUND IMAGING R L RIGHT INT EXT INT EXT LEFT Quan (cm/s) Quan (cm/s) Subclavian 78/0 Subclavian 79/0 CCA Proximal 86/9 CCA Proximal 107/12 CCA Distal 66/10 CCA Distal 77/9 Bulb 62/9 Bulb 58/9 ICA Proximal 32/10 ICA Proximal 44/7 ICA Mid 58/14 ICA Mid 68/16 ICA Distal 80/17 ICA Distal 82/19 ECA 61/0 ECA 78/5 Vertebral 41/8 A Vertebral 52/8 A ICA/CCA Ratio 0.93 ICA/CCA Ratio 0.77 % Stenosis % Stenosis PHYSICIAN INTERPRETATION: Mild atherosclerotic changes noted in the bilateral common and internal carotid arteries with no hemodynamically significant lesion. No significant change since prior study in 2014. cc: MD Pavel Torre MD
--- NOTE | 2018-07-19 15:22 | PROGRESS NOTE ---
DATE: 07/19/2018 SUBJECTIVE: Patient resting in bed. OBJECTIVE: Vital signs: Vital signs are as follows: Temperature 98.1 degrees, pulse 66, respirations 18, blood pressure 160/69, oxygen saturation 100%. HEENT: Atraumatic, normocephalic. Cardiovascular system: S1, S2. Respiratory system: Has evidence of good air entry bilaterally. Abdomen: Soft, nontender. No masses felt. Extremities: No evidence of significant edema. Central nervous system: No obvious focal deficit noted. ASSESSMENT: 1. Subacute cerebrovascular accident. 2. Acute kidney injury. 3. Hypertension. 4. Vitamin D deficiency. 5. Type 2 diabetes mellitus. 6. History of prostate cancer. 7. History of Crohn disease. 8. Mitral valve prolapse. 9. Gastroesophageal reflux disease 10. Interstitial cystitis. PLAN: Continue current management. The patient will be discharged today with outpatient hospice. cc: Pavel Gutierrez MD
--- NOTE | 2018-07-19 18:23 | DISCHARGE SUMMARY ---
ADMISSION DATE: 07/07/2018 DISCHARGE DATE: 07/19/2018 ADDENDUM: His discharge date is 07/19/2018. cc: Pavel Gutierrez MD
[2018-07-19 19:35] VITALS: BP 132/63
== END 2018-07-19 20:17 | disposition hospice, home (50) | DRG 64 ==
LOC: SUPCPDRO → ED 08:20 → 3N 13:49 → SUATTDRO 13:49
PROVIDERS: ATTEND Internal Medicine
CPT/HCPCS: 51702; 70450; 70544; 70551; 71010; 71020; 71045; 71046; 80048; 80053; 80061; 80101; 80301; 80307; 80324; 80345; 80346; 80353; 80358; 80361; 80365; 81001; 82306; 82533; 82550; 82553; 82607; 82746; 82805; 82948; 83036; 83735; 83880; 83992; 84439; 84443; 84484; 85025; 85027; 85610; 85730; 92610; 93005; 93306; 93880; 94761; 94799; 97110; 97162; 97166; 97530; 97535; 99285; A9270; C8929; G0431; G0434; G0479; G0480; J1650; J2785; J3420; J3486; J7030; J7040; Q9957; S0179; XXXXX